=== PATIENT | female | born 1950 | race Caucasian/White ===

== ENCOUNTER 2019-04-27 14:41 | Outpatient (CLI) | payer OTHER, SELFPAY ==
[2019-04-27 15:14] LABS: Basophils Absolute Auto 0.1 K/mm3 (0.0-0.1); Basophils Percent Auto 0.9 % (0.2-1.2); Eosinophils Absolute Auto 0.2 K/mm3 (0-0.3); Eosinophils Percent Auto 3.3 % (0-4.4); Hemoglobin 13.1 g/dL (12.0-15.0); Immature Granulocyte Absolute 0.03 K/mm3 (0.00-0.031); Immature Granulocyte Percent A 0.5 % (0-0.5); Lymphocytes Absolute Auto 2.37 K/mm3 (0.9-3.2); Mean Corpuscular HGB Conc 32.8 g/dl (32-36); Mean Corpuscular Volume 94.6 fl (80-100); Monocytes Absolute Auto 0.5 K/mm3 (0.1-0.6); Monocytes Percent Auto 7.9 % (2.6-8.5); Neutrophils Absolute Auto 3.4 K/mm3 (1.3-6.7); Neutrophils Percent Auto 51.4 % (45.5-73.1); Platelet Count Result 235 k/mm3 (150-375); Red Blood Count 4.23 M/mm3 (4.2-5.4); Red Cell Distribution Width 12.9 % (11.5-14.5); White Blood Count 6.6 K/mm3 (4.5-10.0)
[2019-04-27 15:55] LABS: Alanine Aminotransferase 18 U/L (4-35); Albumin Level 4.2 g/dL (3.5-5.1); Alkaline Phosphatase 74 U/L (38-126); Aspartate Amino Transferase 31 U/L (14-36); Bilirubin,Total 0.2 mg/dL (0.2-1.3); Blood Urea Nitrogen 17 mg/dL (7-17); Calcium 9.1 mg/dL (8.4-10.2); Carbon Dioxide 26 mmol/L (22-30); Chloride 101 mmol/L (98-107); Estimated Glomerular Filt Rate > 60; Glucose 100 mg/dL (65-105); Lipase 99 U/L (23-300); Sodium 136 mmol/L (137-145)
== END 2019-04-27 14:42 | disposition home or self-care (01) ==
PROVIDERS: PCP Internal Medicine; Visit Provider Internal Medicine
DX: R10.9 Unspecified abdominal pain (principal)
CPT/HCPCS: 36415; 80053; 83690; 85025

== ENCOUNTER 2019-04-29 07:25 | Outpatient (CLI) | payer OTHER, SELFPAY ==
--- NOTE | ~2019-04-29 | US_ITS ---
US right upper quadrant DATE: 04/29/2019 07:59 INDICATION: Epigastric abdominal pain TECHNIQUE: Real-time imaging of liver, pancreas, gallbladder fossa COMPARISON: 03/18/2016 CT abdomen pelvis FINDINGS: The gallbladder is surgically absent. No hepatic or pancreatic space-occupying mass lesion is evident. Normal hepatic portal venous flow di rection. The common bile duct measures 7 mm, which is likely consistent with postcholecystectomy state. IMPRESSION: Status post cholecystectomy Reviewed, dictated and finalized at Location A. Reviewed, dictated and finalized at location A. ND OF THE COURT IMPRESSION: Status post cholecystectomy
--- NOTE | ~2019-04-29 | XR_ITS ---
XR UGI w barium swallow DATE: 04/29/2019 08:19 INDICATION: Epigastric abdominal pain TECHNIQUE: Rapid sequence spot radiographs and overhead radiographs and fluoroscopy during oral inges tion of barium. Air contrast upper gastrointestinal series DAP: 37.386 1.2 minutes fluoroscopy time 88 total images COMPARISON: None FINDINGS: Normal deglutition and esophageal peristalsis. No stricture, mucosal fold thickening, erosion, ulceration or intraluminal mass lesion of the esophag us, stomach or duodenum is detected. IMPRESSION: Negative examination Reviewed, dictated and finalized at Location [facility]. Reviewed, dictated and finalized at location A. PRODUCTION ASSOCIATE IMPRESSION: Negative examination
== END 2019-04-29 07:26 | disposition home or self-care (01) ==
PROVIDERS: PCP Internal Medicine; Visit Provider Internal Medicine
DX: R10.13 Epigastric pain (principal); Z90.49 Acquired absence of other specified parts of digestive tract
CPT/HCPCS: 74240; 76705

== ENCOUNTER 2019-11-09 09:32 | Outpatient (CLI) | payer OTHER, SELFPAY ==
[2019-11-09 10:08] LABS: Alanine Aminotransferase 18 U/L (4-35); Albumin Level 4.3 g/dL (3.5-5.1); Alkaline Phosphatase 78 U/L (38-126); Anion Gap 8 mmol/L (8-16); Aspartate Amino Transferase 24 U/L (14-36); Bilirubin,Total 0.4 mg/dL (0.2-1.3); Blood Urea Nitrogen 10 mg/dL (7-17); Calcium 9.1 mg/dL (8.4-10.2); Carbon Dioxide 26 mmol/L (22-30); Chloride 103 mmol/L (98-107); Cholesterol 237 mg/dL (0-200); Estimated Glomerular Filt Rate > 60; Glucose 99 mg/dL (65-105); HDL Direct 60 mg/dL; Potassium 4.4 mmol/L (3.4-5.0); Sodium 137 mmol/L (137-145); Triglycerides 166 mg/dL (<150)
[2019-11-09 10:23] LABS: LDL Cholesterol Direct 129 mg/dL
[2019-11-09 10:39] LABS: Thyroid Stimulating Hormone 0.666 uIU/mL (0.465-4.680)
[2019-11-09 11:18] LABS: Vitamin D 25 Hydroxy 58.4 ng/mL
== END 2019-11-09 09:33 | disposition home or self-care (01) ==
LOC: ANHLAB 09:33
PROVIDERS: PCP Internal Medicine; Visit Provider Nurse Practitioner
DX: E03.9 Hypothyroidism, unspecified (principal); E55.9 Vitamin D deficiency, unspecified
CPT/HCPCS: 36415; 80053; 80061; 82306; 84443

== ENCOUNTER 2019-12-10 07:35 | Outpatient (CLI) | payer OTHER, SELFPAY ==
[2019-12-10 08:30] LABS: Cholesterol 145 mg/dL (0-200); HDL Direct 61 mg/dL; Triglycerides 138 mg/dL (<150)
[2019-12-10 08:40] LABS: LDL Cholesterol Direct 56 mg/dL
== END 2019-12-10 07:36 | disposition home or self-care (01) ==
PROVIDERS: PCP Internal Medicine; Visit Provider Nurse Practitioner
DX: E78.5 Hyperlipidemia, unspecified (principal)
CPT/HCPCS: 36415; 80061

== ENCOUNTER → 2020-01-03 12:09 | Outpatient (CLI) | payer OTHER, SELFPAY ==
--- NOTE | ~2020-01-03 | MM_ITS ---
EXAMINATION: MM screening avril BI w ilsa HISTORY: Screening TECHNIQUE: Craniocaudal and mediolateral oblique 3-D tomosynthesis images were obtained and synthetic 2-D images were generated. CAD analysis was submitted and interpreted. COMPARISON: Comparison to multiple prior studies sequentially, with oldest reviewed study dated 08/16. BREAST PARENCHYMAL COMPOSITION: There are scattered areas of fibroglandular density. FINDINGS: Right breast asymmetries and calcifications bilaterally are unchanged. There is no evidence of suspicious mass, calcification, or architectural distortion to suggest malignancy in either breas t. There has been no suspicious interval change. IMPRESSION: 1. No mammographic evidence of malignancy. 2. Recommend routine screening mammography in one year. BI-RADS Category 2: Benign finding(s). Reviewed, dictated and finalized at location A.
== END ==
PROVIDERS: PCP Internal Medicine; Visit Provider Nurse Practitioner
DX: Z12.31 Encounter for screening mammogram for malignant neoplasm of breast (principal)
CPT/HCPCS: 77063; 77067

== ENCOUNTER → 2020-02-14 11:27 | Outpatient (CLI) | payer OTHER, SELFPAY ==
--- NOTE | ~2020-02-14 | DEXA_ITS ---
Bone Density Report Name: Radha Montero Age: 69 Sex: Female Ethnicity: White Date of : 1950 Indication: postmenopausal; screening for osteoporosis; prior fracture; asthma or emphysema; hysterectomy; Referring Provider: Hannah Rowland Study: Bone densitometry was performed. Exam Date: February 14, 2020 Accession number: [id number] Bone Density: Region BMD T-score Z-score Classification AP Spine (L1-L4) 0.933 -1.0 1.1 Normal Femoral Neck (Left) 0.724 -1.1 0.7 Osteopenia Total Hip (Left) 0.865 -0.6 0.9 Normal Femoral Neck (Right) 0.696 -1.4 0.4 Osteopenia Total Hip (Right) 0.842 -0.8 0.7 Normal Total Hip Mean 0.854 -0.7 0.8 Normal World Health Organization criteria for BMD impression classify patients as: Normal (T-score at or above -1.0), Osteopenia (T-score between -1.0 and -2.5), or Osteoporosis (T-score at or below -2.5). 10-year Fracture Risk(1): Major Osteoporotic Fracture 15% Hip Fracture 1.9% Reported Risk Factors: [place] (), Neck BMD=0.696, BMI=32.1, previous fracture (1) FRAX(R) Version 3.08. Fracture probability calculated for an untreated patient. Fracture probability may be lower if the patient has received treatment. Clinical Information Provided by Patient: Has had a low trauma fracture Has used the following medications: Calcium, MTV Has the following medical conditions: Asthma or Emphysema, Hysterectomy Patient maximum height was 67 Menopause Age: 49 No regular weight bearing exercise Does not regularly consume dairy products Drinks caffeinated beverages Onset of menses at age 12 Number of children 2 Impression: The patient has low bone mass, based on the Right Femoral Neck T-score. The patient has an estimated ten-year risk of hip fracture of 1.9% and an estimated ten-year risk of major fracture of 15%, based on the WHO FRAX algorithm. The patient has risk factors, including: previous fracture. Discussion: BONE DENSITY IS LOW AT ONE OR MORE SKELETAL SITES. This patient's lowest T-score is low at one or more skeletal sites. It meets the World Health Organization's (WHO) criteria for ?low bone mass? (T-score between -1.0 and -2.5). The patient's 10-year risk of fracture as calculated by FRAX is less than the threshold where pharmacological therapy is recommended by the National Osteoporosis Foundation (NOF). However, all treatment decisions require clinical judgment and consideration of individual patient factors, including patient preferences, comorbidities, previous drug use, risk factors not captured in the FRAX model (e.g., frailty, falls, vitamin D deficiency, increased bone turnover, interval significant decline in bone density) and possible under or overestimation of fracture risk by FRAX. The patient should follow a healthful lifestyle (good nutrition
== END ==
PROVIDERS: PCP Internal Medicine; Visit Provider Nurse Practitioner
DX: Z78.0 Asymptomatic menopausal state (principal); M81.0 Age-related osteoporosis without current pathological fracture; M85.851 Other specified disorders of bone density and structure, right thigh; M85.852 Other specified disorders of bone density and structure, left thigh
CPT/HCPCS: 77080

== ENCOUNTER 2020-05-02 07:40 | Outpatient (CLI) | payer OTHER, SELFPAY ==
[2020-05-02 08:20] LABS: Alanine Aminotransferase 21 U/L (4-35); Albumin Level 4.1 g/dL (3.5-5.1); Alkaline Phosphatase 74 U/L (38-126); Anion Gap 3 mmol/L (8-16); Aspartate Amino Transferase 26 U/L (14-36); Bilirubin,Total 0.4 mg/dL (0.2-1.3); Blood Urea Nitrogen 17 mg/dL (7-17); Calcium 9.4 mg/dL (8.4-10.2); Carbon Dioxide 34 mmol/L (22-30); Chloride 101 mmol/L (98-107); Cholesterol 261 mg/dL (0-200); Estimated Glomerular Filt Rate > 60; Glucose 101 mg/dL (65-105); HDL Direct 65 mg/dL; Sodium 138 mmol/L (137-145); Triglycerides 136 mg/dL (<150)
[2020-05-02 08:31] LABS: LDL Cholesterol Direct 137 mg/dL
[2020-05-02 09:02] LABS: Vitamin D 25 Hydroxy 70.5 ng/mL
== END 2020-05-02 07:41 | disposition home or self-care (01) ==
PROVIDERS: PCP Internal Medicine; Visit Provider Nurse Practitioner
DX: E78.5 Hyperlipidemia, unspecified (principal); E55.9 Vitamin D deficiency, unspecified; E03.9 Hypothyroidism, unspecified
CPT/HCPCS: 36415; 80053; 80061; 82306; 84443

== ENCOUNTER → 2020-08-17 10:20 | Outpatient (CLI) | payer OTHER, SELFPAY ==
--- NOTE | ~2020-08-17 | XR_ITS ---
XR femur LT min 2V DATE: 08/17/2020 11:15 INDICATION: Left leg pain TECHNIQUE: AP and lateral views COMPARISON: 08/17/2020 left hip FINDINGS: There is diffuse osteopenia. There is periarticular spurring of the patella consistent with osteoarthritis. There is patellar enth esopathy at the quadriceps and patellar tendon insertion sites. No fracture, dislocation, periosteal reaction or bone destruction of the left femur. IMPRESSION: Osteopenia Patellofemoral osteoarthritis Reviewed, dictated and finalized at location B.
--- NOTE | ~2020-08-17 | XR_ITS ---
XR tibia fibula LT 2V DATE: 08/17/2020 11:15 INDICATION: Left leg pain TECHNIQUE: AP and lateral views COMPARISON: None FINDINGS: Diffuse osteopenia. No recent fracture or dislocation. No periosteal reaction or bone destruction. Posterior calcaneal enthesopathy. IMPRESSION: Osteopenia Reviewed, dictated and finalized at location B. IMPRESSION: Osteopenia
--- NOTE | ~2020-08-17 | XR_ITS ---
XR hip LT min 2V DATE: 08/17/2020 11:15 INDICATION: Left hip pain TECHNIQUE: AP and lateral views of left hip COMPARISON: None FINDINGS: Osteopenia. The pubic symphysis and left sacroiliac joint are intact. Left hip joint space appears well preserved . No fracture, dislocation, avascular necrosis or bone destruction of the left hip. IMPRESSION: Osteopenia Reviewed, dictated and finalized at location B. IMPRESSION: Osteopenia
== END ==
PROVIDERS: PCP Internal Medicine; Visit Provider Internal Medicine
DX: M85.852 Other specified disorders of bone density and structure, left thigh (principal); M17.12 Unilateral primary osteoarthritis, left knee
CPT/HCPCS: 73502; 73552; 73590

== ENCOUNTER 2020-11-07 09:34 | Outpatient (CLI) | payer OTHER, SELFPAY ==
[2020-11-07 10:12] LABS: Alanine Aminotransferase 23 U/L (4-35); Albumin Level 4.2 g/dL (3.5-5.1); Alkaline Phosphatase 71 U/L (38-126); Anion Gap 6 mmol/L (8-16); Aspartate Amino Transferase 28 U/L (14-36); Bilirubin,Total 0.4 mg/dL (0.2-1.3); Blood Urea Nitrogen 12 mg/dL (7-17); Calcium 9.1 mg/dL (8.4-10.2); Carbon Dioxide 29 mmol/L (22-30); Chloride 100 mmol/L (98-107); Cholesterol 163 mg/dL (0-200); Estimated Glomerular Filt Rate > 60; Glucose 103 mg/dL (65-110); HDL Direct 61 mg/dL; Potassium 4.3 mmol/L (3.4-5.0); Sodium 135 mmol/L (137-145); Triglycerides 118 mg/dL (<150)
[2020-11-07 10:23] LABS: LDL Cholesterol Direct 68 mg/dL
[2020-11-07 11:14] LABS: Vitamin D 25 Hydroxy 69.7 ng/mL
== END 2020-11-07 09:35 | disposition home or self-care (01) ==
LOC: ANHLAB 09:39
PROVIDERS: PCP Internal Medicine; Visit Provider Internal Medicine
DX: E78.5 Hyperlipidemia, unspecified (principal); Z79.899 Other long term (current) drug therapy; E03.9 Hypothyroidism, unspecified; E55.9 Vitamin D deficiency, unspecified
CPT/HCPCS: 36415; 80053; 80061; 82306; 84443

== ENCOUNTER 2020-12-25 07:56 | Outpatient (CLI) | payer OTHER, SELFPAY ==
--- NOTE | 2021-01-04 12:43 | P.SLEEP_ITS ---
Sleep Study - Home Unattended Date of Study: 12/25/20 Ordering Provider: Kenny Forman DO Interpreting Provider: Roya Ochoa DO Home Sleep Study Type: Apnea Link Air Height: 1.68 m Weight: 92.533 kg Body Mass Index: 32.9 Neck Circumference (inches): 15 [place]: 4 PMFSH Past Medical History Medical History (Updated 01/04/21 @ 13:51 by Roya Ochoa DO) Anxiety Cholecystectomy planned Hyperlipidemia DARY (obstructive sleep apnea) Palpitations Screening for breast cancer Screening for breast cancer Surgical History Surgical History H/O: hysterectomy History of appendectomy Family History Family History Mother Family history of malignant neoplasm Patient's mother is Sibling Family history of chronic obstructive pulmonary disease Patient's brother is Father Family history of Alzheimer's disease Patient's father is Other Family history of lung disease Social History Social History Social History: Social smoker in the past Years smoked: 1 Smoking status: Never smoker Tobacco type: cigarettes Second hand tobacco smoke exposure: Yes Alcohol intake: current Alcohol use details: Once in a while Substance use: never Substance use type: does not use Medications Home Medications Medication Instructions Recorded Confirmed Type cetirizine 10 mg tablet 10 mg PO DAILY PRN tablet 05/03/19 12/22/20 History albuterol sulfate 90 mcg/actuation 1 inhalation INHALATION Q4H #8.5 gm 06/11/19 12/22/20 Rx aerosol inhaler calcium carbonate 500 mg calcium 500 mg PO DAILY #90 tablet 02/14/20 12/22/20 Rx (1,250 mg) tablet alprazolam 0.25 mg tablet 0.25 mg PO DAILY PRN #30 tablet 02/15/20 12/22/20 Rx fluticasone propionate 50 2 spray INTRANASAL DAILY #15.8 ml 02/15/20 12/22/20 Rx mcg/actuation nasal spray,suspension nabumetone 500 mg tablet 500 mg PO BID #60 tablet 08/08/20 12/22/20 Rx levothyroxine 75 mcg tablet 75 mcg PO DAILY #90 tablet 08/11/20 12/22/20 Rx omega-3 acid ethyl esters 1 gram See Rx Instructions .ROUTE 09/18/20 12/22/20 Rx capsule .COMPLEX #30 cap atorvastatin 10 mg tablet 10 mg PO DAILY #90 tablet 10/12/20 12/22/20 Rx Assessment and Plan Data The data obtained during this sleep study is adequate for interpretation.
--- NOTE | 2021-01-04 13:37 | WPDHOMESLEEP ---
Sleep Study - Home Unattended Date of Study: 12/25/20 <Roya Ochoa DO - Last Filed: 01/04/21 13:52> Ordering Provider: Kenny Forman DO <Roya Ochoa DO - Last Filed: 01/04/21 13:52> Interpreting Provider: Roya Ochoa DO <Roya Ochoa DO - Last Filed: 01/04/21 13:52> Home Sleep Study Type: Apnea Link Air <Roya Ochoa DO - Last Filed: 01/04/21 13:52> Height: 1.68 m <Roya Ochoa DO - Last Filed: 01/04/21 13:52> Weight: 92.533 kg <Roya Ochoa DO - Last Filed: 01/04/21 13:52> Body Mass Index: 32.9 <Roya Ochoa DO - Last Filed: 01/04/21 13:52> Neck Circumference (inches): 15 <Roya Ochoa DO - Last Filed: 01/04/21 13:52> [place]: 4 <Roya Ochoa DO - Last Filed: 01/04/21 13:52> Reason for Sleep Study The patient has a history of obstructive sleep apnea. She states that her machine and she took a sleep test 3-4 years ago and she did not qualify for CPAP. <Roya Ochoa DO - Last Filed: 01/04/21 13:52> Sleep History The patient is a 70-year-old female with history of sleep apnea that had a home sleep test ordered by her primary care physician because she needs a new machine. The patient states that about 10 years ago in another state, she had a CPAP machine in used in tele . When she moved here to [facility] she wanted to get another machine but her sleep study did not meet criteria for PAP therapy. The patient frequently awakens from sleep short of breath and often awakens at night with heartburn belching or cough. She does snore constantly and it is often loud enough that others complain. She frequently has trouble sleeping when she has a cold and will frequently wake up gasping for air throughout the night. She has had breathing problems at night observed by others. She has noticed heart palpitations throughout the night. She has never will not sleep during the day or while driving. She denies loss of muscle tone when extremely emotional. She often has trouble at work due to sleepiness. She denies sleep paralysis, cataplexy and hypnagogic/hypnopompic hallucinations. She rarely has nightmares. She denies feeling sad or depressed. She often has anxiety about things. She denies kicking throughout the night. She denies crawling and aching feelings in her legs but she does experience leg pain throughout the night. She will rarely grind her teeth during sleep but denies waking up with jaw pain. She constantly is bothered by pain throughout the day and is awakened by pain throughout the night. She will wake up stiff in the morning. She states that she goes to bed at 10:00 p.m. and wakes up at 8:00 a.m.. She usually gets 6-8 hours of sleep. It takes her about 3 hours to fall asleep and she wakes up about 5 times throughout the night. She can fall back asleep within 10 minutes. She will awaken throughout the night to use the restroom. The patient is currently retired. She does not drink any caffeinated beverages within 2 hours of falling asleep. She denies physical exercise prior to bedtime. She will read before falling asleep but does not watch television. She does not take any naps during the afternoon or the evening. She currently lives with her . The patient is a former smoker. She will drink 1 cup of a caffeinated beverage per day. She denies alcohol and recreational drug use. <Roya Ochoa DO - Last Filed: 01/04/21 13:52> [facility] Past Medical History Medical History: Medical History (Updated 01/04/21 @ 13:51 by Roya Ochoa DO) Anxiety Cholecystectomy planned Hyperlipidemia DARY (obstructive sleep apnea) Palpitations Screening for breast cancer Screening for breast cancer <Roya Ochoa DO - Last Filed: 01/04/21 13:52> Surgical History Surgical History: Surgical History (Reviewed 01/04/21 @ 13:47 by Shanthi
[2021-01-04 13:52] VITALS: BMI 32.9
== END 2020-12-26 10:43 | disposition home or self-care (01) ==
LOC: ANHCSM 07:57
PROVIDERS: PCP Internal Medicine; Visit Provider Internal Medicine
DX: G47.33 Obstructive sleep apnea (adult) (pediatric) (principal)
CPT/HCPCS: 95806

== ENCOUNTER → 2021-01-30 09:00 | Outpatient (CLI) | payer OTHER, SELFPAY ==
[2021-01-30 18:29] LABS: SARS-CoV-2 RNA PCR Negative
== END ==
PROVIDERS: PCP Internal Medicine; Visit Provider Nurse Practitioner
DX: R68.89 Other general symptoms and signs (principal); Z20.822 Contact with and (suspected) exposure to COVID-19
CPT/HCPCS: C9803; U0003; U0005

== ENCOUNTER → 2021-04-17 10:44 | Outpatient (CLI) | payer OTHER, SELFPAY ==
--- NOTE | ~2021-04-17 | MM_ITS ---
EXAMINATION: MM screening [facility] BI w ilsa HISTORY: Screening TECHNIQUE: Craniocaudal and mediolateral oblique 3-D tomosynthesis images were obtained and synthetic 2-D images were generated. CAD analysis was submitted and interpreted. COMPARISON: Comparison to multiple prior studies sequentially, with oldest reviewed study dated 08/28. BREAST PARENCHYMAL COMPOSITION: There are scattered areas of fibroglandular density. FINDINGS: Stable right breast masses. There is no evidence of suspicious mass, calcification, or arch itectural distortion to suggest malignancy in either breast. There has been no suspicious interval ch fabienne. IMPRESSION: 1. No mammographic evidence of malignancy. 2. Recommend routine screening mammography in one year. BI-RADS Category 2: Benign finding(s). Reviewed, dictated and finalized at location A. ING ASSISTANT
== END ==
PROVIDERS: Visit Provider Nurse Practitioner
DX: Z12.31 Encounter for screening mammogram for malignant neoplasm of breast (principal)
CPT/HCPCS: 77063; 77067

== ENCOUNTER 2021-09-26 00:27 | Day surgery (SDC) | payer OTHER, SELFPAY ==
[2021-09-06 14:04] VITALS: BMI 32.3
[2021-09-26 06:22] VITALS: BP 143/67; PULSE 70; RESP 20; TEMP 36.3; O2SAT 99; BMI 31.8
[2021-09-26] MEDS: LACTATED RINGERS 1,000 ML 150 ML IV CONT (06:31)
--- NOTE | 2021-09-26 07:27 | WPDANESEPPF ---
Anes - Initial Pre Proc Eval Procedure: Operation Date: 09/26/21 07:30 Proposed Procedures p Colonoscopy - Eddie Barry MD Date/Time: 09/26/21 07:27 Surgeon: Eddie Barry MD Pre Op Diagnosis: diverticulitis Patient Data Age: 71 Gender: F Height: 1.68 m Weight: 89.4 kg Last Vital Signs Temp 97.4 F L 09/26/21 06:22 Pulse 70 09/26/21 06:22 Resp 20 09/26/21 06:22 BP 143/67 H 09/26/21 06:22 Pulse Ox 99 09/26/21 06:22 O2 Del Method Room Air 09/26/21 06:22 Allergies Allergy/AdvReac Type Severity Reaction Status Date / Time No Known Allergies Allergy Verified 09/26/21 06:20 Home Medications Medication Instructions Recorded Confirmed Type albuterol sulfate 90 mcg/actuation 1 inhalation inhalation Q4H #8.5 06/11/19 09/06/21 Rx aerosol inhaler grams calcium carbonate 500 mg calcium 500 mg PO DAILY #90 tabs 02/14/20 09/06/21 Rx (1,250 mg) tablet (Calcium 500) alprazolam 0.25 mg tablet (Xanax) 0.25 mg PO DAILY PRN anxiety #30 02/15/20 09/06/21 Rx tabs dextroamphetamine-amphetamine 10 2.5 mg PO DAILY PRN ADHD 02/05/21 09/06/21 History mg tablet (Adderall) atorvastatin 10 mg tablet See Rx Instructions .Route 04/04/21 09/06/21 Rx .COMPLEX #90 tabs fexofenadine 180 mg tablet 180 mg PO DAILY 07/05/21 09/06/21 History levothyroxine 75 mcg tablet 75 mcg PO DAILY #90 tabs 09/05/21 09/06/21 Rx omega-3 acid ethyl esters 1 gram See Rx Instructions .Route 09/05/21 09/06/21 Rx capsule .COMPLEX #30 caps ashwagandha root extract 1 tablet PO DAILY 09/06/21 09/06/21 History fluticasone propionate 50 See Rx Instructions .Route 09/06/21 09/06/21 History mcg/actuation nasal .COMPLEX PRN Congestion spray,suspension melatonin 3 mg tablet 3 mg PO HS PRN Insomnia 09/06/21 09/06/21 History nabumetone 500 mg tablet 500 mg PO BID #60 tabs 09/24/21 09/26/21 Rx Patient hx anesthesia problems: none Family hx anesthesia problems: none Results Review: All pre-operative results and documents have been reviewed as part of the pre-operative evaluation. [facility] Past Medical History Medical History Anxiety Cholecystectomy planned Hyperlipidemia DARY (obstructive sleep apnea) Palpitations Screening for breast cancer Screening for breast cancer Surgical History Surgical History H/O: hysterectomy History of appendectomy Family History Family History Mother Family history of malignant neoplasm Patient's mother is Sibling Family history of chronic obstructive pulmonary disease Patient's brother is Father Family history of Alzheimer's disease Patient's father is Other Family history of lung disease Social History Social History Social History: Social smoker in the past Years smoked: 3 Smoking status: Former smoker Tobacco type: cigarettes Second hand tobacco smoke exposure: Yes Alcohol intake: current Alcohol use details: 1 per month Substance use: never Substance use type: does not use Living arrangements: with family Spiritual care concerns: No Anes - Eval Final PreProcedure Day of Procedure 09/26/21 07:27 Patient weight: obese Heart: regular rate and rhythm Lungs: clear to auscultation Airway: Mallampati scale class II Neurological: alert and oriented Last oral intake: >/= 8 hours ASA classification: III Emergent: no Anesthetic plan: proceed Anesthesia type and monitoring: general GIVS and standard monitoring Results Review: All pre-operative results and documents have been reviewed as part of the pre-operative evaluation. Informed Consent: The patient's anesthetic plan and its attendant risks and benefits were discussed with the patient/family
--- NOTE | 2021-09-26 07:49 | PM.HPGS ---
History of Present Illness History of Present Illness Consent: Risks, benefits, and alternatives have been discussed and questions answered. Patient agrees to proceed with procedure. Chief complaint: diverticulitis Narrative: Radha Montero is a 71 year old female with previous episode of diverticulitis, last colonoscopy about 5 years ago Review of Systems Constitutional: Constitutional: Denies headache(s) and Denies weakness Eyes: Eyes: Denies blurry vision ENT: Reports Normal hearing present, Denies headache(s) and Denies neck pain Cardiovascular: Cardiovascular: Denies chest pain and Denies dyspnea Respiratory: Respiratory: Denies dyspnea Gastrointestinal: Gastrointestinal: Reports no additional gastrointestinal complaints Genitourinary: Genitourinary: Denies dysuria Musculoskeletal: Musculoskeletal: Denies neck pain Integumentary/Breasts: Skin/Breast: Denies dry skin Neurologic: Reports Normal hearing present, Denies headache(s) and Denies weakness Psychiatric: Psychiatric: Denies anxiety Endocrine: Endocrine: Denies change in body appearance Hematologic/Lymphatic: Hematologic/Lymphatic: Denies easy bleeding Allergic/Immunologic: Allergic/Immunologic: Denies urticaria PMFSH Past Medical History Medical History Anxiety Cholecystectomy planned Hyperlipidemia DARY (obstructive sleep apnea) Palpitations Screening for breast cancer Screening for breast cancer Surgical History Surgical History H/O: hysterectomy History of appendectomy Family History Family History Mother Family history of malignant neoplasm Patient's mother is Sibling Family history of chronic obstructive pulmonary disease Patient's brother is Father Family history of Alzheimer's disease Patient's father is Other Family history of lung disease Social History Social History Social History: Social smoker in the past Years smoked: 3 Smoking status: Former smoker Tobacco type: cigarettes Second hand tobacco smoke exposure: Yes Alcohol intake: current Alcohol use details: 1 per month Substance use: never Substance use type: does not use Living arrangements: with family Spiritual care concerns: No Meds Home Medications and Allergies Home Medications Medication Instructions Recorded Confirmed Type albuterol sulfate 90 mcg/actuation 1 inhalation inhalation Q4H #8.5 06/11/19 09/06/21 Rx aerosol inhaler grams calcium carbonate 500 mg calcium 500 mg PO DAILY #90 tabs 02/14/20 09/06/21 Rx (1,250 mg) tablet (Calcium 500) alprazolam 0.25 mg tablet (Xanax) 0.25 mg PO DAILY PRN anxiety #30 02/15/20 09/06/21 Rx tabs dextroamphetamine-amphetamine 10 2.5 mg PO DAILY PRN ADHD 02/05/21 09/06/21 History mg tablet (Adderall) atorvastatin 10 mg tablet See Rx Instructions .Route 04/04/21 09/06/21 Rx .COMPLEX #90 tabs fexofenadine 180 mg tablet 180 mg PO DAILY 07/05/21 09/06/21 History levothyroxine 75 mcg tablet 75 mcg PO DAILY #90 tabs 09/05/21 09/06/21 Rx omega-3 acid ethyl esters 1 gram See Rx Instructions .Route 09/05/21 09/06/21 Rx capsule .COMPLEX #30 caps ashshareedha root extract 1 tablet PO DAILY 09/06/21 09/06/21 History fluticasone propionate 50 See Rx Instructions .Route 09/06/21 09/06/21 History mcg/actuation nasal .COMPLEX PRN Congestion spray,suspension melatonin 3 mg tablet 3 mg PO HS PRN Insomnia 09/06/21 09/06/21 History nabumetone 500 mg tablet 500 mg PO BID #60 tabs 09/24/21 09/26/21 Rx Allergies Allergy/AdvReac Type Severity Reaction Status Date / Time No Known Allergies Allergy Verified 09/26/21 06:20 Vital Signs Vital Signs - 24 hr 09/26/21 06:22 Temperature 97.4 F L Pulse Rate 70
[2021-09-26 08:11] VITALS: BP 126/50; PULSE 47; RESP 23; O2SAT 98
[2021-09-26 08:21] VITALS: BP 134/56; PULSE 50; RESP 22; O2SAT 98
[2021-09-26 08:31] VITALS: BP 141/57; PULSE 55; RESP 20; O2SAT 99
== END 2021-09-26 08:35 | disposition home or self-care (01) ==
PROVIDERS: PCP Internal Medicine; Visit Provider Internal Medicine Gastroenterology
PROC: 0DJD8ZZ Inspection of Lower Intestinal Tract, Via Natural or Artificial Opening Endoscopic (ICD-10-PCS; CPT 45378; principal; 2021-09-26 07:30)
DX: Z09 Encounter for follow-up examination after completed treatment for conditions other than malignant neoplasm (principal); D12.0 Benign neoplasm of cecum; K57.30 Diverticulosis of large intestine without perforation or abscess without bleeding; K62.89 Other specified diseases of anus and rectum; K64.8 Other hemorrhoids; K64.4 Residual hemorrhoidal skin tags; Z87.19 Personal history of other diseases of the digestive system; E78.5 Hyperlipidemia, unspecified; G47.33 Obstructive sleep apnea (adult) (pediatric); F41.9 Anxiety disorder, unspecified; Z87.891 Personal history of nicotine dependence; E66.9 Obesity, unspecified; Z68.31 Body mass index [BMI] 31.0-31.9, adult; Z79.51 Long term (current) use of inhaled steroids
CPT/HCPCS: 45385; 88305; J2001; J2704; J7120

== ENCOUNTER 2022-01-15 06:56 | Outpatient (CLI) | payer OTHER, SELFPAY ==
[2022-01-15 07:20] LABS: Alanine Aminotransferase 27 U/L (6-35); Albumin Level 4.1 g/dL (3.5-5.1); Alkaline Phosphatase 90 U/L (38-126); Anion Gap 10 mmol/L (8-16); Aspartate Amino Transferase 31 U/L (14-36); Bilirubin,Total 0.5 mg/dL (0.2-1.3); Blood Urea Nitrogen 10 mg/dL (7-17); Calcium 9.1 mg/dL (8.4-10.2); Carbon Dioxide 29 mmol/L (22-30); Chloride 103 mmol/L (98-107); Cholesterol 165 mg/dL (0-200); Estimated Glomerular Filt Rate > 60; Glucose 101 mg/dL (65-110); HDL Direct 63 mg/dL; Sodium 142 mmol/L (137-145); Triglycerides 91 mg/dL (<150)
[2022-01-15 07:31] LABS: LDL Cholesterol Direct 65 mg/dL
[2022-01-15 07:48] LABS: Vitamin D 25 Hydroxy 52.5 ng/mL
== END 2022-01-15 06:57 | disposition home or self-care (01) ==
LOC: ANHLAB 06:57
PROVIDERS: PCP Internal Medicine; Visit Provider Internal Medicine
DX: E78.5 Hyperlipidemia, unspecified (principal); Z79.899 Other long term (current) drug therapy; E03.9 Hypothyroidism, unspecified; E55.9 Vitamin D deficiency, unspecified
CPT/HCPCS: 36415; 80053; 80061; 82306; 84443

== ENCOUNTER 2022-02-07 14:16 | Outpatient (CLI) | payer OTHER, SELFPAY | END 2022-02-07 14:17 | disposition home or self-care (01) | LOC: ANHAUDIO 14:17 | PROVIDERS: PCP Internal Medicine; Visit Provider Nurse Practitioner | DX: H90.3 Sensorineural hearing loss, bilateral (principal) | CPT/HCPCS: 92557; 92567 ==

== ENCOUNTER 2022-05-03 14:23 | Outpatient (CLI) | payer OTHER, SELFPAY ==
[2022-05-03 15:03] LABS: Basophils Absolute Auto 0.1 K/mm3 (0.0-0.1); Basophils Percent Auto 0.9 % (0.2-1.2); Eosinophils Absolute Auto 0.4 K/mm3 (0-0.3); Eosinophils Percent Auto 7.8 % (0-4.4); Hematocrit 43.2 % (37.0-47.0); Hemoglobin 14.2 g/dL (12.0-15.0); Immature Granulocyte Absolute 0.01 K/mm3 (0.00-0.031); Immature Granulocyte Percent A 0.2 % (0-0.5); Lymphocytes Absolute Auto 2.29 K/mm3 (0.9-3.2); Lymphocytes Percent Auto 40.8 % (18.3-44.2); Mean Corpuscular HGB Conc 32.9 g/dl (32-36); Mean Corpuscular Volume 97.3 fl (80-100); Mean Platelet Volume 9.3 fl (7.4-10.4); Monocytes Absolute Auto 0.5 K/mm3 (0.1-0.6); Monocytes Percent Auto 9.1 % (2.6-8.5); Neutrophils Absolute Auto 2.3 K/mm3 (1.3-6.7); Neutrophils Percent Auto 41.2 % (45.5-73.1); Platelet Count Result 201 k/mm3 (150-375); Red Blood Count 4.44 M/mm3 (4.2-5.4); Red Cell Distribution Width 12.6 % (11.5-14.5); White Blood Count 5.6 K/mm3 (4.5-10.0)
[2022-05-03 15:25] LABS: Alanine Aminotransferase 34 U/L (6-35); Albumin Level 4.5 g/dL (3.5-5.1); Alkaline Phosphatase 113 U/L (38-126); Anion Gap 5 mmol/L (8-16); Aspartate Amino Transferase 37 U/L (14-36); Bilirubin,Total 0.4 mg/dL (0.2-1.3); Blood Urea Nitrogen 12 mg/dL (7-17); Calcium 9.2 mg/dL (8.4-10.2); Carbon Dioxide 31 mmol/L (22-30); Chloride 95 mmol/L (98-107); Estimated Glomerular Filt Rate > 60; Glucose 94 mg/dL (65-110); Potassium 3.9 mmol/L (3.4-5.0); Sodium 131 mmol/L (137-145)
== END 2022-05-03 14:24 | disposition home or self-care (01) ==
PROVIDERS: PCP Internal Medicine; Visit Provider Nurse Practitioner Family
DX: R10.9 Unspecified abdominal pain (principal)
CPT/HCPCS: 36415; 80053; 85025; 87086; 87088

== ENCOUNTER 2022-05-07 10:19 | Outpatient (CLI) | payer OTHER, SELFPAY ==
--- NOTE | 2022-05-09 11:37 | WPDHOLTEREM ---
Holter/Event Monitor Holter/Event Monitor Date of procedure: 05/07/22 Holter/Event Procedure: 24 Hr Holter Monitor Indications: Palpitations Conclusion: 1. 24 hour holter monitor on 05/07/22. 2. Underlying rhythm is sinus rhythm. HR range 42-106 bpm; average HR 57 bpm. 3. There are 142 premature supraventricular complexes and 1 supraventricular couplet and 1 supraventricular triplet, 3 supraventricular trigeminy. No supraventricular tachycardia. 4. There are 28 premature ventricular complexes. No ventricular tachycardia. 5. No sinoatrial or atrioventricular blocks. No significant pauses greater than 2 seconds. 6. Patient reports symptoms of palpitations which demonstrate sinus rhythm, HR range 60-83 bpm.
== END 2022-05-07 10:20 | disposition home or self-care (01) ==
LOC: ANHCARD 10:21
PROVIDERS: PCP Internal Medicine; Visit Provider Internal Medicine
DX: R00.2 Palpitations (principal)
CPT/HCPCS: 93225; 93226

== ENCOUNTER 2022-07-31 08:06 | Outpatient (CLI) | payer OTHER, SELFPAY ==
[2022-07-31 09:08] LABS: Anion Gap 4 mmol/L (8-16); Blood Urea Nitrogen 13 mg/dL (7-17); Carbon Dioxide 34 mmol/L (22-30); Chloride 102 mmol/L (98-107); Potassium 4.2 mmol/L (3.4-5.0); Sodium 140 mmol/L (137-145)
[2022-07-31 09:09] LABS: Alanine Aminotransferase 28 U/L (6-35); Albumin Level 4.1 g/dL (3.5-5.1); Alkaline Phosphatase 105 U/L (38-126); Aspartate Amino Transferase 30 U/L (14-36); Bilirubin,Total 0.4 mg/dL (0.2-1.3); Calcium 9.2 mg/dL (8.4-10.2); Cholesterol 144 mg/dL (0-200); Estimated Glomerular Filt Rate > 60; Glucose 103 mg/dL (65-110); HDL Direct 56 mg/dL; Triglycerides 118 mg/dL (<150)
[2022-07-31 09:19] LABS: Anion Gap 5 mmol/L (8-16); Blood Urea Nitrogen 13 mg/dL (7-17); Calcium 9.3 mg/dL (8.4-10.2); Carbon Dioxide 34 mmol/L (22-30); Chloride 101 mmol/L (98-107); Estimated Glomerular Filt Rate > 60; Glucose 105 mg/dL (65-110); LDL Cholesterol Direct 56 mg/dL; Potassium 4.3 mmol/L (3.4-5.0); Sodium 140 mmol/L (137-145)
== END 2022-07-31 08:07 | disposition home or self-care (01) ==
LOC: ANHLAB 08:08
PROVIDERS: PCP Family Medicine; Referring Provider Nurse Practitioner Family; Visit Provider Nurse Practitioner
DX: E87.1 Hypo-osmolality and hyponatremia (principal); E78.5 Hyperlipidemia, unspecified
CPT/HCPCS: 36415; 80048; 80053; 80061

== ENCOUNTER 2022-08-15 09:13 | Outpatient (CLI) | payer OTHER, SELFPAY ==
--- NOTE | 2022-08-20 07:37 | WPDHOLTEREM ---
Holter/Event Monitor Holter/Event Monitor Date of procedure: 08/15/22 Holter/Event Procedure: 48 Hr Holter Monitor Indications: Palpitations Conclusion: 1. 48 hour holter monitor on 08/15/22. 2. Underlying rhythm is sinus rhythm. HR range 38-121 bpm; average HR 58 bpm. HR at 38 bpm was at 04:11. 3. There are 89 premature supraventricular complexes, and 2 supraventricular triplets. No supraventricular tachycardia. 4. There are 211 premature ventricular complexes, 1 ventricular couplet and 3 ventricular bigeminy. No ventricular tachycardia. 5. No sinoatrial or atrioventricular blocks. No significant pauses greater than 2 seconds. 6. Patient reports symptoms of racing heart and palpitations which demonstrate sinus rhythm, HR range 40-48 bpm.
== END 2022-08-15 09:14 | disposition home or self-care (01) ==
LOC: ANHCARD 09:14
PROVIDERS: PCP Family Medicine; Visit Provider Family Medicine
DX: R00.2 Palpitations (principal)
CPT/HCPCS: 93225; 93226

== ENCOUNTER → 2022-09-11 06:52 | Outpatient (CLI) | payer OTHER, SELFPAY ==
--- NOTE | ~2022-09-11 | MM_ITS ---
EXAMINATION: MM screening avril BI w ilsa HISTORY: Screening mammogram TECHNIQUE: Craniocaudal and mediolateral oblique 3-D tomosynthesis images were obtained and synthetic 2-D images were generated. CAD analysis was submitted and interpreted. COMPARISON: 04/17/2021, 01/03/2020, 11/16/2018 bilateral screening mammogram examinations BREAST PARENCHYMAL COMPOSITION: There are scattered areas of fibroglandular density. FINDINGS: There are scattered benign calcifications. There is no evidence of suspicious mass, calcifi cation, or architectural distortion to suggest malignancy in either breast. There has been no suspici ous interval change. IMPRESSION: 1. No mammographic evidence of malignancy. 2. Recommend routine screening mammography in one year. BI-RADS Category 2: Benign finding(s). Reviewed, dictated and finalized at location A.
== END ==
PROVIDERS: PCP Internal Medicine; Visit Provider Internal Medicine
DX: Z12.31 Encounter for screening mammogram for malignant neoplasm of breast (principal)
CPT/HCPCS: 77063; 77067

== ENCOUNTER 2023-02-19 07:08 | Outpatient (CLI) | payer OTHER, SELFPAY ==
[2023-02-19 07:51] LABS: Basophils Percent Auto 0.8 % (0.2-1.2); Eosinophils Absolute Auto 0.3 K/mm3 (0-0.3); Eosinophils Percent Auto 5.3 % (0-4.4); Hematocrit 45.2 % (37.0-47.0); Hemoglobin 14.7 g/dL (12.0-15.0); Immature Granulocyte Absolute 0.01 K/mm3 (0.00-0.031); Immature Granulocyte Percent A 0.2 % (0-0.5); Lymphocytes Absolute Auto 1.74 K/mm3 (0.9-3.2); Lymphocytes Percent Auto 36.9 % (18.3-44.2); Mean Corpuscular HGB Conc 32.5 g/dl (32-36); Mean Corpuscular Volume 98.5 fl (80-100); Mean Platelet Volume 9.5 fl (7.4-10.4); Monocytes Absolute Auto 0.5 K/mm3 (0.1-0.6); Monocytes Percent Auto 10.2 % (2.6-8.5); Neutrophils Absolute Auto 2.2 K/mm3 (1.3-6.7); Neutrophils Percent Auto 46.6 % (45.5-73.1); Platelet Count Result 216 k/mm3 (150-375); Red Blood Count 4.59 M/mm3 (4.2-5.4); White Blood Count 4.7 K/mm3 (4.5-10.0)
[2023-02-19 08:02] LABS: Alanine Aminotransferase 36 U/L (6-35); Albumin Level 4.6 g/dL (3.5-5.1); Alkaline Phosphatase 79 U/L (38-126); Anion Gap 6 mmol/L (8-16); Aspartate Amino Transferase 34 U/L (14-36); Bilirubin,Total 0.5 mg/dL (0.2-1.3); Blood Urea Nitrogen 22 mg/dL (7-17); Carbon Dioxide 32 mmol/L (22-30); Chloride 101 mmol/L (98-107); Estimated Glomerular Filt Rate > 60; Glucose 103 mg/dL (65-110); Potassium 4.1 mmol/L (3.4-5.0); Sodium 139 mmol/L (137-145)
[2023-02-23 11:52] LABS: Testosterone Total 28 ng/dL (2-45)
[2023-02-23 15:40] LABS: FSH 60.2 mIU/mL (***); LH 21.6 mIU/mL (***); Progesterone 0.2 ng/mL (***)
[2023-02-24 23:19] LABS: Estradiol, Ultrasensitive 14 pg/mL
== END 2023-02-19 07:09 | disposition home or self-care (01) ==
LOC: ANHLAB 07:10
PROVIDERS: PCP Family Medicine; Visit Provider Family Medicine
DX: E03.9 Hypothyroidism, unspecified (principal); G47.33 Obstructive sleep apnea (adult) (pediatric); R53.82 Chronic fatigue, unspecified; E78.5 Hyperlipidemia, unspecified; R00.2 Palpitations; F98.8 Other specified behavioral and emotional disorders with onset usually occurring in childhood and adolescence
CPT/HCPCS: 36415; 80053; 82670; 83001; 83002; 84144; 84403; 84443; 85025

== ENCOUNTER 2023-03-14 10:52 | Emergency (ER) | payer OTHER, SELFPAY ==
[2023-03-14 11:18] VITALS: BP 131/95; PULSE 68; RESP 16; TEMP 36.7; O2SAT 100
--- NOTE | 2023-03-14 11:39 | ED.URI ---
HPI - URI/Sore Throat General Chief Complaint: Upper Respiratory Infection Stated Complaint: Covid symptoms Time Seen by Provider: 03/14/23 11:30 Source: patient, RN notes reviewed and old records reviewed Mode of arrival: ambulatory Limitations: no limitations History of Present Illness HPI Narrative: 72 year old female who presents to [facility] care with complaints of 2 day history of body aches, frontal headache,sinus congestion and drainage, cough with no fevers. Reports that she had Home COVID test yesterday that was negative. Patient reports that family members are COVID positive. Patient reports that she has history of asthma, denies any acute dyspnea no tachypnea noted [id number] on room air. MD elicited complaint: cough, rhinorrhea, nasal congestion and other (headache and body aches) Pertinent past history: asthma Onset (ago): day(s) (2) Severity: mild Description of mucous: clear Able to tolerate fluids by mouth: Yes Treatments prior to arrival: acetaminophen and ibuprofen Related Data Home Medications Medication Instructions Recorded Confirmed famotidine 40 mg tablet See Rx Instructions .Route 02/13/23 03/14/23 .COMPLEX PRN Acid Reflux nabumetone 500 mg tablet 500 mg PO BID PRN Pain, Mild 02/13/23 03/14/23 omega-3 acid ethyl esters 1 gram See Rx Instructions .Route .COMPLEX 02/13/23 03/14/23 capsule Allergies Allergy/AdvReac Type Severity Reaction Status Date / Time No Known Allergies Allergy Verified 02/13/23 10:02 Review of Systems Review of Systems: CONSTITUTIONAL: Reports malaise, chills, sweats, no acute fever. EYES: Denies visual changes, redness, or discharge. ENT: Reports rhinorrhea, congestion, sinus pain,no otalgia and no sore throat. CARDIOVASCULAR: Denies chest pain, palpitations, or edema. RESPIRATORY: Reports cough.? Denies dyspnea. GASTROINTESTINAL: Denies abdominal pain, nausea, vomiting, diarrhea SKIN: Denies rash or itching. MUSCULOSKELETAL:Reports myalgia. NEUROLOGIC: Reports headache. All systems reviewed & are unremarkable except as noted in HPI and below PMFSH Past Medical History Medical History ADD (attention deficit disorder) Anxiety Cholecystectomy planned Diverticulosis Hyperlipidemia Hypothyroidism DARY (obstructive sleep apnea) Osteoarthritis Palpitations Screening for breast cancer Screening for breast cancer Surgical History Surgical History H/O: hysterectomy History of appendectomy History of cholecystectomy Family History Family History Mother Family history of malignant neoplasm Patient's mother is Sibling Family history of chronic obstructive pulmonary disease Patient's brother is Father Family history of Alzheimer's disease Patient's father is Other Family history of lung disease Social History Social History Social History: Social smoker in the past Years smoked: 3 Smoking status: Former smoker Tobacco type: cigarettes Second hand tobacco smoke exposure: Yes Alcohol intake: never Substance use: never Substance use type: does not use Lack of Transportation: No Lack of Food: Never True Current Housing: I Have Housing Concerned About Future Housing: No Difficulty Paying Gas/Electric Bills: No Difficulty Paying for Meds: No Education: High School Diploma/GED Difficulty w/ Childcare or Family Care: No Living arrangements: with family Spiritual care concerns: No Comments At time of signature, agree with nursing past medical, surgical, social and family history. There is no relevant family history pertinent to the presenting complaint Exam Narrative: GENERAL: Well-appearing, well-nourished, and in no acute dist
== END 2023-03-14 11:50 | disposition home or self-care (01) ==
PROVIDERS: Emergency Provider Registered Nurse; PCP Family Medicine
DX: U07.1 COVID-19 (principal); J45.909 Unspecified asthma, uncomplicated; E78.5 Hyperlipidemia, unspecified; E03.9 Hypothyroidism, unspecified; M19.90 Unspecified osteoarthritis, unspecified site; F41.9 Anxiety disorder, unspecified
CPT/HCPCS: 87426; 87804; 99213; C9803; G0463

== ENCOUNTER 2023-03-26 10:09 | Outpatient (CLI) | payer OTHER, SELFPAY ==
[2023-03-26 10:34] LABS: Hematocrit 44.2 % (37.0-47.0); Hemoglobin 14.4 g/dL (12.0-15.0); Mean Corpuscular HGB Conc 32.6 g/dl (32-36); Mean Corpuscular Hemoglobin 31.4 pg (26-34); Mean Corpuscular Volume 96.5 fl (80-100); Mean Platelet Volume 8.6 fl (7.4-10.4); Platelet Count Result 266 k/mm3 (150-375); Red Blood Count 4.58 M/mm3 (4.2-5.4); Red Cell Distribution Width 12.8 % (11.5-14.5); White Blood Count 7.5 K/mm3 (4.5-10.0)
[2023-03-26 10:57] LABS: Alanine Aminotransferase 35 U/L (6-35); Albumin Level 4.3 g/dL (3.5-5.1); Alkaline Phosphatase 79 U/L (38-126); Anion Gap 9 mmol/L (8-16); Aspartate Amino Transferase 27 U/L (14-36); Bilirubin,Total 0.4 mg/dL (0.2-1.3); Blood Urea Nitrogen 15 mg/dL (7-17); Calcium 9.7 mg/dL (8.4-10.2); Carbon Dioxide 30 mmol/L (22-30); Chloride 99 mmol/L (98-107); Cholesterol 281 mg/dL (0-200); Estimated Glomerular Filt Rate > 60; Glucose 121 mg/dL (65-110); HDL Direct 60 mg/dL; Potassium 4.1 mmol/L (3.4-5.0); Sodium 138 mmol/L (137-145); Triglycerides 186 mg/dL (<150)
[2023-03-26 11:08] LABS: LDL Cholesterol Direct 136 mg/dL
[2023-03-26 11:18] LABS: Vitamin D 25 Hydroxy 58.7 ng/mL
[2023-03-26 11:27] LABS: Thyroid Stimulating Hormone 0.427 uIU/mL (0.465-4.680)
== END 2023-03-26 10:10 | disposition home or self-care (01) ==
PROVIDERS: PCP Family Medicine; Visit Provider Family Medicine
DX: E03.9 Hypothyroidism, unspecified (principal); E55.9 Vitamin D deficiency, unspecified; E78.5 Hyperlipidemia, unspecified
CPT/HCPCS: 36415; 80053; 80061; 82306; 84443; 85027

== ENCOUNTER 2023-06-12 12:36 | Outpatient (CLI) | payer OTHER, SELFPAY ==
[2023-06-12 13:47] LABS: Basophils Percent Auto 0.5 % (0.2-1.2); Eosinophils Absolute Auto 1.3 K/mm3 (0-0.3); Eosinophils Percent Auto 20.1 % (0-4.4); Hematocrit 44.3 % (37.0-47.0); Hemoglobin 14.6 g/dL (12.0-15.0); Immature Granulocyte Absolute 0.01 K/mm3 (0.00-0.031); Immature Granulocyte Percent A 0.2 % (0-0.5); Lymphocytes Absolute Auto 2.37 K/mm3 (0.9-3.2); Lymphocytes Percent Auto 36.1 % (18.3-44.2); Mean Corpuscular Hemoglobin 31.8 pg (26-34); Mean Corpuscular Volume 96.5 fl (80-100); Mean Platelet Volume 9.4 fl (7.4-10.4); Monocytes Absolute Auto 0.6 K/mm3 (0.1-0.6); Monocytes Percent Auto 9.3 % (2.6-8.5); Neutrophils Absolute Auto 2.2 K/mm3 (1.3-6.7); Neutrophils Percent Auto 33.8 % (45.5-73.1); Platelet Count Result 215 k/mm3 (150-375); Red Blood Count 4.59 M/mm3 (4.2-5.4); Red Cell Distribution Width 12.9 % (11.5-14.5); White Blood Count 6.6 K/mm3 (4.5-10.0)
[2023-06-12 13:54] LABS: Alanine Aminotransferase 20 U/L (6-35); Albumin Level 4.4 g/dL (3.5-5.1); Alkaline Phosphatase 82 U/L (38-126); Amylase 78 U/L (30-110); Anion Gap 6 mmol/L (8-16); Aspartate Amino Transferase 29 U/L (14-36); Bilirubin,Total 0.6 mg/dL (0.2-1.3); Blood Urea Nitrogen 14 mg/dL (7-17); Carbon Dioxide 31 mmol/L (22-30); Chloride 101 mmol/L (98-107); Estimated Glomerular Filt Rate > 60; Glucose 89 mg/dL (65-110); Lipase 64 U/L (23-300); Potassium 4.6 mmol/L (3.4-5.0); Sodium 138 mmol/L (137-145)
[2023-06-12 14:23] LABS: Atypical Lymphocytes Present; Platelet Estimate Adequate (Adequate); Schistocytes None Seen
[2023-06-12 17:34] LABS: Hemoglobin A1C 5.5 % (<5.7)
== END 2023-06-12 12:37 | disposition home or self-care (01) ==
PROVIDERS: PCP Family Medicine; Visit Provider Nurse Practitioner Family
DX: R10.13 Epigastric pain (principal); R19.7 Diarrhea, unspecified; R73.01 Impaired fasting glucose; Z79.899 Other long term (current) drug therapy
CPT/HCPCS: 36415; 80053; 82150; 83036; 83690; 85025

== ENCOUNTER 2023-09-06 07:07 | Outpatient (CLI) | payer OTHER, SELFPAY ==
[2023-09-06 07:35] LABS: Cholesterol 218 mg/dL (0-200); HDL Direct 62 mg/dL; Triglycerides 88 mg/dL (<150)
[2023-09-06 07:46] LABS: LDL Cholesterol Direct 109 mg/dL
== END 2023-09-06 07:08 | disposition home or self-care (01) ==
PROVIDERS: PCP Family Medicine; Visit Provider Family Medicine
DX: E03.9 Hypothyroidism, unspecified (principal)
CPT/HCPCS: 36415; 80061; 84443

== ENCOUNTER 2024-01-28 10:43 | Outpatient (CLI) | payer OTHER, SELFPAY ==
--- NOTE | ~2024-01-28 | XR_ITS ---
XR chest 2V Ordering provider: Brooklyn Segura APRN History: 73 years Female with . R05.9 - Cough, unspecified . Comparison: January 05, 2019 FINDINGS: MEDIASTINUM: The cardiac silhouette is not enlarged. Congestive tnoi. LUNGS: No effusions or pneumothorax. Opacification the right infrahilar area suggestive of early pneu monia. Follow-up advised. OTHER: No free air under the diaphragm. Degenerative changes of the spine. IMPRESSION: Opacification in the right infrahilar area suggestive of early pneumonia. Follow-up advised. Reviewed, dictated and finalized at location A. IMPRESSION: Opacification in the right infrahilar area suggestive of early pneumonia. Follo w-up advised.
[2024-01-28 11:34] LABS: Strep Group A RT-PCR NOT DETECTED (Negative)
[2024-01-28 11:46] LABS: Influenza A QL RT-PCR Negative (Negative); Influenza B QL RT-PCR Negative (Negative); RSV RNA, RT-PCR Negative (Negative); SARS-CoV-2 RNA PCR Negative (Negative)
== END 2024-01-28 10:44 | disposition home or self-care (01) ==
PROVIDERS: PCP Family Medicine; Visit Provider Nurse Practitioner Family
DX: U07.1 COVID-19 (principal); R05.9 Cough, unspecified; R06.02 Shortness of breath
CPT/HCPCS: 71046; 87637; 87651

== ENCOUNTER 2024-02-23 12:09 | Outpatient (CLI) | payer OTHER, SELFPAY ==
--- NOTE | ~2024-02-23 | DEXA_ITS ---
Bone Density Report Name: MIKHAIL ABREU Age: 73 Sex: Female Ethnicity: White Date of : 1950 Indication: postmenopausal; screening for osteoporosis; asthma or emphysema; Referring Provider: GUADALUPE RIZVI Study: Bone densitometry was performed. Exam Date: February 23, 2024 Accession number: [id number] Bone Density: Region BMD T-score Z-score Classification AP Spine(L1-L4) 0.963 -0.8 1.6 Normal Femoral Neck (Left) 0.720 -1.2 0.9 Osteopenia Total Hip (Left) 0.854 -0.7 1.0 Normal Femoral Neck (Right) 0.732 -1.1 1.0 Osteopenia Total Hip (Right) 0.824 -1.0 0.8 Normal Total Hip Mean 0.839 -0.9 0.9 Normal World Health Organization criteria for BMD impression classify patients as: Normal (T-score at or above -1.0), Osteopenia (T-score between -1.0 and -2.5), or Osteoporosis (T-score at or below -2.5). 10-year Fracture Risk(1): Major Osteoporotic Fracture 9.6% Hip Fracture 1.5% Reported Risk Factors: [place] (), Neck BMD=0.720, BMI=30.4 (1) FRAX(R) Version 3.08. Fracture probability calculated for an untreated patient. Fracture probability may be lower if the patient has received treatment. Previous Exams: Region Exam Age BMD T-score BMD Change BMD Change Date g/cm2 vs Baseline vs Previous AP Spine (L1-L4) 02/23/2024 73 0.963 -0.8 -0.013 (-1.4%) 0.008 (0.9%) 02/11/2018 67 0.955 -0.8 -0.022 (-2.2%) -0.022 (-2.2%) 08/16/2014 63 0.976 -0.6 Total Hip(Left) 02/23/2024 73 0.854 -0.7 -0.099 (-10.4% -0.007 (-0.8%) 02/11/2018 67 0.861 -0.7 -0.092 (-9.6%) -0.092 (-9.6%) 08/16/2014 63 0.953 0.1 Total Hip(Right) 02/23/2024 73 0.824 -1.0 -0.074 (-8.2%) -0.026 (-3.0%) 02/11/2018 67 0.850 -0.8 -0.048 (-5.4%) -0.048 (-5.4%) 08/16/2014 63 0.898 -0.4 *Denotes significance at 95% confidence level, LSC for AP Spine = 0.022 g/cm2, LSC for Total Hip = 0.027 g/cm2 Clinical Information Provided by Patient: Has used the following medications: Vitamin D, Calcium Has the following medical conditions: Asthma or Emphysema Patient maximum height was 66.0 Menopause Age: 49 No regular weight bearing exercise Drinks caffeinated beverages Onset of menses at age 12 Number of children 2 Impression: The patient has low bone mass, based on the Left Femoral Neck T-score. The patient has an estimated ten-year risk of hip fracture of 1.5% and an estimated ten-year risk of major fracture of 9.6%, based on the WHO FRAX algorithm. No significant bone loss was observed. Discussion: BONE DENSITY IS LOW AT ONE OR MORE SKELETAL SITES. This patient's lowest T-score is low at one or more skeletal sites. It meets the World Health Organization's (WHO) criteria for ?low bone mass? (T-score between -1.0 and -2.5). The patient's 10-year risk of fracture as calculated by FRAX is less than the threshold where pharmacological therapy is recommended by the National Osteoporosis Foundation (NOF). However, all treatment decisions require clinical judgment and consideration of individual patient factors, including patient preferences, comorbidities, previous drug use, risk factors not captured in the FRAX model (e.g., frailty, falls, vitamin D deficiency, increased bone turnover, interval significant decline in bone density) and possible under or overestimation of fracture risk by FRAX. The patient should follow a healthful lifestyle (good nutrition with adequate calcium and vitamin D, and appropriate weight-bearing exercise). Follow-Up: Consider repeating this study in 2 to 3 years to reassess this patient's status, or sooner if there is some new clinical indication. Reported by: MERON on 02/23/2024 12:41:00 PM. Reviewed, dictated and finalized at location AApril MAZA
== END 2024-02-23 12:10 | disposition home or self-care (01) ==
LOC: ANHIMG 12:10
PROVIDERS: PCP Family Medicine; Visit Provider Family Medicine
DX: M85.89 Other specified disorders of bone density and structure, multiple sites (principal); N95.9 Unspecified menopausal and perimenopausal disorder
CPT/HCPCS: 77080

== ENCOUNTER 2024-02-25 11:58 | Outpatient (CLI) | payer OTHER, SELFPAY ==
--- NOTE | ~2024-02-25 | MM_ITS ---
EXAMINATION: MM screening avril BI w ilsa HISTORY: Screening TECHNIQUE: Craniocaudal and mediolateral oblique 3-D tomosynthesis images were obtained and synthetic 2-D images were generated. CAD analysis was submitted and interpreted. COMPARISON: Comparison to multiple prior studies sequentially, with oldest reviewed study dated 05/2016. BREAST PARENCHYMAL COMPOSITION: Not dense: There are scattered areas of fibroglandular density. FINDINGS: Right breast asymmetries are stable. There is no evidence of suspicious mass, calcification , or architectural distortion to suggest malignancy in either breast. There has been no suspicious in terval change. IMPRESSION: 1. No mammographic evidence of malignancy. 2. Recommend routine screening mammography in one year. BI-RADS Category 2: Benign finding(s). Reviewed, dictated and finalized at location B. NG SUPERVISOR
== END 2024-02-25 11:59 | disposition home or self-care (01) ==
LOC: MICIMG 11:59
PROVIDERS: PCP Family Medicine; Visit Provider Family Medicine
DX: Z12.31 Encounter for screening mammogram for malignant neoplasm of breast (principal)
CPT/HCPCS: 77063; 77067

== ENCOUNTER 2024-03-06 06:50 | Outpatient (CLI) | payer OTHER, SELFPAY ==
[2024-03-06 07:12] LABS: Hemoglobin 14.8 g/dL (12.0-15.0); Mean Corpuscular HGB Conc 32.9 g/dl (32-36); Mean Corpuscular Hemoglobin 32.4 pg (26-34); Mean Corpuscular Volume 98.5 fl (80-100); Mean Platelet Volume 9.1 fl (7.4-10.4); Platelet Count Result 210 k/mm3 (150-375); Red Blood Count 4.57 M/mm3 (4.2-5.4); White Blood Count 4.7 K/mm3 (4.5-10.0)
[2024-03-06 07:28] LABS: Alanine Aminotransferase 36 U/L (6-35); Albumin Level 4.3 g/dL (3.5-5.1); Alkaline Phosphatase 79 U/L (38-126); Anion Gap 4 mmol/L (4-12); Aspartate Amino Transferase 34 U/L (14-36); Bilirubin,Total 0.6 mg/dL (0.2-1.3); Blood Urea Nitrogen 19 mg/dL (7-17); Calcium 9.6 mg/dL (8.4-10.2); Carbon Dioxide 32 mmol/L (22-30); Chloride 102 mmol/L (98-107); Estimated Glomerular Filt Rate > 60; Glucose 99 mg/dL (65-110); Potassium 4.2 mmol/L (3.4-5.0); Sodium 138 mmol/L (137-145)
== END 2024-03-06 06:51 | disposition home or self-care (01) ==
PROVIDERS: PCP Family Medicine; Visit Provider Family Medicine
DX: E03.9 Hypothyroidism, unspecified (principal); E78.5 Hyperlipidemia, unspecified; F98.8 Other specified behavioral and emotional disorders with onset usually occurring in childhood and adolescence; G47.33 Obstructive sleep apnea (adult) (pediatric); R53.82 Chronic fatigue, unspecified; E55.9 Vitamin D deficiency, unspecified
CPT/HCPCS: 36415; 80053; 84443; 85027

== ENCOUNTER 2024-03-12 10:53 | Emergency (ER) | payer OTHER, SELFPAY ==
--- NOTE | ~2024-03-12 | CT_ITS ---
EXAMINATION: CT brain wo con DATE: 03/12/2024 14:27 INDICATION: Headache. TECHNIQUE: Computed tomography (CT) of the head was performed without intravenous contrast. Sagittal and coronal reconstructions were performed. The mA was adjusted according to patient size. Iterative reconstruction technique was employed. The dose-length product was 529.67 mGy-cm. COMPARISON: None FINDINGS: Lenticular 12 x 10 x 4 mm high attenuation lesion along the left side of the falx at the level of the parietal lobe which given the thickness of both the extent of the lesion as well as the absence of h istory of trauma with strongly favor meningioma over a very small subdural hematoma. No other masses or mass effect. No acute infarction or abnormal extra axial fluid collection. There is mild scattered white matter hypoattenuation consistent with chronic small vessel ischemic disease. Ventricles are n ormal and symmetric. Changes of bilateral intraocular lens replacement. The orbits, paranasal sinuses and mastoid air cells are normal. IMPRESSION: 1. 12 x 10 x 4 mm high attenuation lesion along the left side of the falx and would favor strongly fa vor meningioma over subdural hematoma. 2. Mild scattered white matter hypoattenuation consistent with chronic small vessel ischemic disease. Reviewed, dictated and finalized at location A. ECTION CORRESPONDENT IMPRESSION: 1. 12 x 10 x 4 mm high attenuation lesion along the left side of the falx and w ould favor strongly favor meningioma over subdural hematoma. 2. Mild scattered white matter hypoattenuation consistent with chronic small ve ssel ischemic disease.
--- NOTE | ~2024-03-12 | MR_ITS ---
EXAMINATION: MR brain/brain stem wo/w con DATE: 03/12/2024 17:07 INDICATION: Parafalcine mass. TECHNIQUE: Magnetic resonance imaging (MRI) of the brain and brainstem was performed without and with 17 mL MultiHance intravenous contrast. COMPARISON: Head CT 03/12/2024 FINDINGS: There is an 11 x 4 mm enhancing parafalcine mass adjacent to the left parietal lobe, consis tent with a meningioma. There are scattered areas of nonspecific increased T2-weighted signal intensi ty in the cerebral white matter, which is within normal limits for the patient's age. There is no acu te ischemic infarct or intracranial hemorrhage. The ventricles are normal in size. There are likely c hanges of ocular lens replacement surgeries. The paranasal sinuses are clear. The mastoid air cells a re normal. IMPRESSION: 1. 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 Reviewed, dictated and finalized at location A. OGRAPHIC PLATE MAKER APPRENTICE
[2024-03-12 11:15] VITALS: BP 155/71; PULSE 58; RESP 17; TEMP 36.8; O2SAT 98
[2024-03-12 13:38] VITALS: BP 143/80; PULSE 60; RESP 16; O2SAT 98
[2024-03-12 15:00] VITALS: BP 140/93; PULSE 55; RESP 16; O2SAT 98
[2024-03-12 16:00] VITALS: BP 140/55; PULSE 55; RESP 16; O2SAT 100
[2024-03-12] MEDS: LORazepam INJ (*CRX) 2 MG/ML VIAL 1 MG IV PUSH (16:48)
[2024-03-12 17:45] VITALS: BP 127/74; PULSE 55; RESP 16; O2SAT 99
--- NOTE | 2024-03-12 17:49 | ED_ITS ---
HPI - Headache General Chief Complaint: Headache Stated Complaint: migraine since yesterday Time Seen by Provider: 03/12/24 13:27 History of Present Illness HPI Narrative: Patient has fell a throbbing pain to the right side of her scalp since yesterday, comes and goes. Tried her usual headache medications without much improvement. Pain with touching her scalp Related Data Home Medications ?Medication ?Instructions ?Recorded ?Confirmed ?Last Taken ?Type famotidine 40 mg tablet See Rx Instructions .Route 02/13/23 01/28/24 Unknown History .COMPLEX PRN Acid Reflux omega-3 acid ethyl esters 1 gram See Rx Instructions .Route .COMPLEX 02/13/23 01/28/24 Unknown History capsule Allergies Allergy/AdvReac Type Severity Reaction Status Date / Time No Known Allergies Allergy Verified 09/04/23 14:01 Review of Systems Review of Systems: All systems reviewed & are unremarkable except as noted in HPI and below PMFSH Past Medical History Medical History Diverticulosis Osteoarthritis Hypothyroidism ADD (attention deficit disorder) DARY (obstructive sleep apnea) Hyperlipidemia Palpitations Anxiety Screening for breast cancer Screening for breast cancer Cholecystectomy planned Surgical History Surgical History History of cholecystectomy History of appendectomy H/O: hysterectomy Family History Family History Mother Family history of malignant neoplasm Patient's mother is Sibling Family history of chronic obstructive pulmonary disease Patient's brother is Father Family history of Alzheimer's disease Patient's father is Other Family history of lung disease Social History Social History Social History: Social smoker in the past Years smoked: 3 Smoking status: Former smoker Tobacco type: cigarettes Second hand tobacco smoke exposure: Yes Alcohol intake: never Substance use: never Substance use type: does not use Lack of Transportation: No Lack of Food: Never True Current Housing: I Have Housing Concerned About Future Housing: No Difficulty Paying Gas/Electric Bills: No Difficulty Paying for Meds: No Education: High School Diploma/GED Difficulty w/ Childcare or Family Care: No Living arrangements: with family Spiritual care concerns: No Exam Narrative: EXAMINATION OF ORGAN SYSTEMS/BODY AREAS: Constitutional: Vital signs per nursing GENERAL:[No acute distress, non-toxic appearing.] HEAD: Normal with no signs of head trauma. Slight tenderness to palpation to the right scalp, no obvious blisters or lesions EYES: EOMI, conjunctiva normal ENT: Hearing grossly intact LUNGS: Nonlabored breathing. HEART: [Regular rate and rhythm] ABD: [Soft], [nontender to palpation] EXT: Normal range of motion SKIN: [No rashes or lesions.] NEURO: [Alert and oriented x 3. No gross focal sensory or strength deficits.] PSYCH: Normal affect Course Vital Signs Vital signs: Vital Signs Temperature 98.2 F 03/12/24 11:15 Pulse Rate 58 L 03/12/24 11:15 Respiratory Rate 17 03/12/24 11:15 Blood Pressure 155/71 H 03/12/24 11:15 Pulse Oximetry 98 03/12/24 11:15 Oxygen Delivery Room Air 03/12/24 11:15 Temperature 98.2 F 03/12/24 11:15 Pulse Rate 55 L 03/12/24 16:00 Respiratory Rate 16 03/12/24 16:00 Blood Pressure 140/55 L 03/12/24 16:00 Pulse Oximetry 100 03/12/24 16:00 Oxygen Delivery Room Air 03/12/24 11:15 MDM - Headache MDM Narrative Medical decision making narrative: Patient presenting with right scalp pain, she is well-appearing, denies any recent injuries or trauma. I do not see any lesions since I did consider possible shingles or early shingles. She very well appearing, no neurologic deficits. CT head shows possible meningioma but cannot rule out subdural, MRI obtained which is consistent with meningioma. Patient very well-appearing, I did discuss the findings with her, will have her follow-up with PCP. To my concern that this may be very early/developing shingles, I did give her script for Valtrex so that she can start if she starts noticing any new blisters or lesions to her scalp. Discharge Plan Discharge Clinical Impression: Meningioma, Scalp pain Patient Disposition: Home, Self-Care Condition: Stable Instructions: Meningioma (ED) Additional Instructions: Please follow-up with your primary care doctor, if your symptoms persist, if you start noticing a new rash on your head, come back to the emergency room. Patient Language: Vietnamese Prescriptions: New valacyclovir [Valtrex] 1 gram tablet 1,000 mg PO Q8H 7 Days Qty: 21 0RF No Action sodium chloride 0.9 % aerosol,spray 3 spray intranasal ONCE PRN (Reason: nasal congestion) Qty: 85 0RF albuterol sulfate 90 mcg/actuation HFA aerosol inhaler 2 inh inhalation Q4H Qty: 8.5 3RF Rx Instructions: w/ spacer alprazolam [Xanax] 0.25 mg tablet 0.25 mg PO DAILY PRN (Reason: anxiety) Qty: 30 0RF doxepin 25 mg capsule 25 mg PO QHS Qty: 30 0RF codeine-guaifenesin 10-100 mg/5 mL liquid 5 ml PO Q6H Qty: 120 0RF cetirizine [Zyrtec] 10 mg tablet 10 mg PO DAILY Qty: 30 6RF famotidine 40 mg tablet See Rx Instructions .ROUTE .COMPLEX PRN (Reason: Acid Reflux) Dose Instruction: Take 1 tablet by mouth once daily Rx Instructions: Take 1 tablet by mouth once daily PRN; omega-3 acid ethyl esters 1 gram capsule See Rx Instructions .ROUTE .COMPLEX Dose Instruction: Take 1 capsule by mouth once daily Rx Instructions: Take 1 capsule by mouth once daily PRN; calcium carbonate [Calcium 500] 500 mg calcium (1,250 mg) tablet 500 mg PO DAILY Qty: 90 1RF fluticasone propionate 50 mcg/actuation spray,suspension See Rx Instructions .ROUTE .COMPLEX Qty: 16 0RF Dose Instruction: Use 2 spray(s) in each nostril once daily Rx Instructions: Use 2 spray(s) in each nostril once daily montelukast 10 mg tablet See Rx Instructions .ROUTE .COMPLEX Qty: 90 0RF Dose Instruction: Take 1 tablet by mouth once daily Rx Instructions: Take 1 tablet by mouth once daily azithromycin [Zithromax Z-Evan] 250 mg tablet See Rx Instructions PO .COMPLEX Qty: 6 0RF Rx Instructions: For 250 mg dose pack: take 500 mg today (day 1), then 250 mg for 4 days (days 2-5) PO (DME) BreatheRite MDI Spacer Spacer See Rx Instructions .Route Qty: 1 0RF Rx Instructions: use w/ inhaler every 4 hours as needed for shortness of breath levothyroxine 75 mcg tablet 75 mcg PO DAILY Qty: 90 1RF nabumetone 500 mg tablet See Rx Instructions .ROUTE .COMPLEX Qty: 180 0RF Dose Instruction: Take 1 tablet by mouth twice daily Rx Instructions: Take 1 tablet by mouth twice daily Follow-up/Referrals: Cristian Almaguer MD [Primary Care Provider] - 2 Days
== END 2024-03-12 17:45 | disposition home or self-care (01) ==
PROVIDERS: Emergency Provider Emergency Medicine; PCP Family Medicine
DX: D32.0 Benign neoplasm of cerebral meninges (principal); E03.9 Hypothyroidism, unspecified; E78.5 Hyperlipidemia, unspecified; G47.33 Obstructive sleep apnea (adult) (pediatric); M19.90 Unspecified osteoarthritis, unspecified site; F98.8 Other specified behavioral and emotional disorders with onset usually occurring in childhood and adolescence; Z87.891 Personal history of nicotine dependence; Z90.49 Acquired absence of other specified parts of digestive tract; Z90.710 Acquired absence of both cervix and uterus; Z79.899 Other long term (current) drug therapy
CPT/HCPCS: 70450; 70553; 96374; 99284; A9577; J2060

== ENCOUNTER 2024-05-10 14:16 | Outpatient (CLI) | payer OTHER, SELFPAY ==
--- NOTE | ~2024-05-10 | XR_ITS ---
Clinical Indication: Fever PA and lateral views of the chest: Comparison: 01/28/2024 Findings: The lungs are clear, without evidence of focal consolidation or pleural effusion. Cardiome diastinal silhouette is within normal limits. Bones and soft tissues are unremarkable. Impression: Normal chest. Reviewed, dictated and finalized at [facility]. WORK MANAGER Impression: Normal chest.
--- OUTSIDE RECORDS SUMMARY | 2024-05-10 14:30 | XMS_ITS | Clinical Summary ---
Author Organization [facility] Address [address], [facility] [address] [place] [address] Phone Care Team Providers Care Charging Operator Name Role Phone Marcos Hastings MD Primary Care Provider [phone] Allergies No known active allergies Medications polyethylene glycol (MIRALAX) Powder Mix the entire bottle with 64 oz of a clear liquid. Use as directed by the office for colonoscopy prep. 255 g 0 6 Active metroNIDAZOLE (FLAGYL) 500 MG Tablet Take 1 Tab by mouth 3 times daily. 30 Tab 0 6 Active Selenium 200 MCG Capsule Take 1 Cap by mouth daily. Active Misc Natural Products (CURCUMAX PRO PO) Take 665 mg by mouth daily. Active GLUCOSAMINE-CHO NDROITIN POIndications:1 .5 g/200mg Take 1 Tab by mouth 2 times daily. Indications: 1.5 g/200mg Active Biotin 5000 MCG SL Tablet 1 Tab by Sublingual route daily. Active Magnesium Oxide 400 MG Capsule Take 1 Cap by mouth daily. Active Cholecalciferol (VITAMIN D3) 5000 UNITS Capsule Take 1 Cap by mouth daily. Active Multiple Vitamins-Minera ls (OCUVITE PO) Take 1 Cap by mouth daily. Active Cyanocobalamin (VITAMIN B-12) 5000 MCG SL Tablet 1 Tab by Sublingual route daily. Active niacin (SLO-NIACIN) 500 MG Tablet Controlled Release Take 500 mg by mouth daily. Active levothyroxine (SYNTHROID) 75 MCG Tablet Take 75 mcg by mouth daily. Active nabumetone (RELAFEN) 750 MG Tablet Take 750 mg by mouth 2 times daily. Active Family History Medical History Relation Name Comments Asthma Brother Alzheimer's Disease Father Cancer Mother Bone Marrow Colon Cancer Mother Relation Name Status Comments Brother Father Mother Social History Tobacco Use Types Packs/Day Years Used Date Smoking Tobacco: Never Smokeless Tobacco: Never Alcohol Use Standard Drinks/Week Comments Yes 0 (1 standard drink = 0.6 oz pure alcohol) 1 glass of wine every six month Comments Unknown Sex and Gender Information Value Date Recorded Sex Assigned at Not on file Legal Sex Female 9:19 AM CDT Gender Identity Not on file Sexual Orientation Not on file Plan of Treatment Health Maintenance Due Date Last Done Comments DEXA Bone Density 1950 Hepatitis C Virus (HCV) Screening 1950 TdaP Immunization 1950 Cologuard 08/19/1999 Immunochemical Fecal Occult Blood 08/19/1999 Mammogram 08/19/1999 Pneumococcal Immunization (5 0+ years) (1 of 1 - PCV) 08/19/1999 Zoster Immunization (1 of 2) 08/19/1999 Influenza Immunization (#1) 2023 SARS-COV-2 Immunization ( - season) 2023 Respiratory Syncytial Virus (RSV) Immunization (Adult) (1 - 1-dose 75+ series) 2024 Colonoscopy 03/18/2026 03/18/2016 Colorectal Cancer Screening 03/18/2026 03/18/2016 Hepatitis B Immunization Aged Out No longer eligible based on patient's age to complete this topic Meningococcal Immunization (ACWY) Aged Out No longer eligible based on patient's age to complete this topic Rotavirus Immunization Aged Out No lo nger eligible based on patient's age to complete this topic Procedures Procedure Name Priority Date/Time Associated Diagnosis Comments COLONOSCOPY Routine 03/18/2016 from Last 3 Months or Most Recently Relevant to Health Maintenance Results * COLONOSCOPY (03/18/2016) Macros Hastings MD PROCEDURE/MINOR SURGICAL ORDER KRISTINA Final Result from Last 3 Months or Most Recently Relevant to Health Maintenance Insurance MEDICARE C [facility] Care Teams Charging Operator Relationship Specialty Start Date End Date Marcos Hastings MD [address] [facility] [address] [place] [address] PCP - General Internal Medicine 03/25/16
--- OUTSIDE RECORDS SUMMARY | 2024-05-10 14:30 | XMS_ITS | Clinical Summary ---
Author Organization [facility] Address [facility] [place] [address] Care Team Providers Care Cabinet Abrasive Sandblaster Name Role Phone Unavailable Primary Care Provider Unavailabl e Social History Tobacco Use Types Packs/Day Years Used Date Smoking Tobacco: Never Assessed Comments Unknown Sex and Gender Information Value Date Recorded Sex Assigned at Not on file Legal Sex Female 7:36 PM CDT Gender Identity Not on file Sexual Orientation Not on file Last Filed Vital Signs Vital Sign Reading Time Taken Comments Blood Pressure 130/79 05/05/2014 9:40 AM REFERRAL AND INFORMATION AIDE Pulse 55 05/05/2014 9:40 AM REFERRAL AND INFORMATION AIDE Temperature - - Respiratory Rate - - Oxygen Saturation - - Inhaled Oxygen Concentration - - Weight 94.5 kg (208 lb 4 oz) 05/05/2014 9:40 AM REFERRAL AND INFORMATION AIDE Height 170.2 cm (5' 7 ) 05/05/2014 9:40 AM REFERRAL AND INFORMATION AIDE Body Mass Index 32.62 05/05/2014 9:40 AM REFERRAL AND INFORMATION AIDE Plan of Treatment Health Maintenance Due Date Last Done Comments Colorectal Cancer Screening Colonoscopy (10 Years) 1950 Hepatitis C 08/19/1967 DTaP, Tdap and Td Vaccines ( 1 - Tdap) 1968 Mammogram Screening 1989 Zoster Vaccines (1 of 2) 08/19/1999 Dexa Scan (General) 2014 Pneumococcal Vaccine: 65+ Ye ars (1 of 1 - PCV) 2014 COVID-19 Vaccine ( - 2023-2 5 season) 2023 Influenza Adult (#1) 2023 RSV Immunization or 60+ Years (1 - 1-dose 75+ series) 2024 Meningococcal B Vaccine Aged Out No l onger eligible based on patient's age to complete this topic Meningococcal Vaccine Aged Out No cj yusef eligible based on patient's age to complete this topic RSV Immunizations Under 20 Months Aged Out No longer eligible based on patient's age to complete this topic
[2024-05-10 15:38] LABS: Influenza A QL RT-PCR Positive (Negative); Influenza B QL RT-PCR Negative (Negative); RSV RNA, RT-PCR Negative (Negative); SARS-CoV-2 RNA PCR Negative (Negative)
== END 2024-05-10 14:17 | disposition home or self-care (01) ==
PROVIDERS: PCP Family Medicine; Visit Provider Nurse Practitioner Family
DX: R50.9 Fever, unspecified (principal); R05.9 Cough, unspecified; Z20.822 Contact with and (suspected) exposure to COVID-19
CPT/HCPCS: 71046; 87637

== ENCOUNTER 2024-06-10 09:20 | Outpatient (CLI) | payer OTHER, SELFPAY ==
--- NOTE | ~2024-06-10 | MR_ITS ---
EXAMINATION: MR brain/brain stem wo/w con DATE: 06/10/2024 10:28 INDICATION: Benign neoplasm of meninges. TECHNIQUE: Magnetic resonance imaging (MRI) of the brain and brainstem was performed without and with 20 mL ProHance intravenous contrast. COMPARISON: Brain MRI 03/12/2024, head CT 03/12/2024 FINDINGS: There are scattered areas of nonspecific increased T2-weighted signal intensity in the cere bral white matter, which is within normal limits for the patient's age. There is an 11 x 4 mm enhanci ng parafalcine mass adjacent to the left parietal lobe, consistent with a meningioma. There is no acu te ischemic infarct or intracranial hemorrhage. The ventricles are normal in size. There is mild muco dimitrios thickening in the paranasal sinuses. There are likely changes of ocular lens replacement surgerie s. The mastoid air cells are normal. IMPRESSION: 1. 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 Reviewed, dictated and finalized at location B.
--- OUTSIDE RECORDS SUMMARY | 2024-06-10 10:29 | XMS_ITS | Clinical Summary ---
Author Organization [facility] Address [address], [facility] [address] [place] [address] Phone Care Team Providers Care Design Specialist Name Role Phone Marcos Hastings MD Primary Care Provider [phone] Allergies No known active allergies Medications polyethylene [...] to Health Maintenance Results * COLONOSCOPY (03/18/2016) Marcos Hastings MD PROCEDURE/MINOR SURGICAL ORDER KRISTINA Final Result from Last 3 Months or Most Recently Relevant to Health Maintenance [facility] Care Teams Design Specialist Relationship Specialty Start Date End Date Marcos Hastings MD [address] [facility] [address] [place] [address] PCP - General Internal Medicine 03/25/16
--- OUTSIDE RECORDS SUMMARY | 2024-06-10 10:29 | XMS_ITS | Clinical Summary ---
Author Organization [facility] Address [facility] [place] [address] Care Team Providers Care Drawing Kiln Supervisor Name Role Phone Unavailable Primary Care Provider [...] Comments Blood Pressure 130/79 05/05/2014 9:40 AM RUSSIAN LANGUAGE PROFESSOR Pulse 55 05/05/2014 9:40 AM RUSSIAN LANGUAGE PROFESSOR Temperature - - Respiratory Rate - - Oxygen Saturation - - Inhaled Oxygen Concentration - - Weight 94.5 kg (208 lb 4 oz) 05/05/2014 9:40 AM RUSSIAN LANGUAGE PROFESSOR Height 170.2 cm (5' 7 ) 05/05/2014 9:40 AM RUSSIAN LANGUAGE PROFESSOR Body Mass Index 32.62 05/05/2014 9:40 AM RUSSIAN LANGUAGE PROFESSOR Plan of Treatment Health Maintenance Due Date [...]
== END 2024-06-10 09:21 | disposition home or self-care (01) ==
PROVIDERS: PCP Family Medicine; Visit Provider Neurological Surgery
DX: D32.9 Benign neoplasm of meninges, unspecified (principal)
CPT/HCPCS: 70553; A9579

== ENCOUNTER 2024-09-13 06:55 | Outpatient (CLI) | payer OTHER, SELFPAY ==
--- OUTSIDE RECORDS SUMMARY | 2024-09-13 06:58 | XMS_ITS | Clinical Summary ---
Author Organization [facility] Address [address], [facility] [address] [place] [address] Phone Care Team Providers Care Shift Stacker Name Role Phone Marcos Hastings MD Primary Care Provider [phone] Allergies No known active allergies Medications polyethylene [...] Colonoscopy 03/18/2026 03/18/2016 Colorectal Cancer Screening 03/18/2026 Hepatitis B Immunization Aged Out No longer [...] Relevant to Health Maintenance Insurance MEDICARE C [employer] Care Teams Shift Stacker Relationship Specialty Start Date End Date Mracos Hastings MD [address] [facility] [address] [place] [address] PCP - General Internal Medicine 03/25/16
[2024-09-13 07:41] LABS: Hematocrit 44.9 % (37.0-47.0); Hemoglobin 14.6 g/dL (12.0-15.0); Mean Corpuscular HGB Conc 32.5 g/dl (32-36); Mean Corpuscular Hemoglobin 31.5 pg (26-34); Mean Corpuscular Volume 96.8 fl (80-100); Platelet Count Result 214 k/mm3 (150-375); Red Blood Count 4.64 M/mm3 (4.2-5.4); Red Cell Distribution Width 13.3 % (11.5-14.5)
[2024-09-13 07:50] LABS: Alanine Aminotransferase 22 U/L (6-35); Albumin Level 4.2 g/dL (3.5-5.1); Alkaline Phosphatase 73 U/L (38-126); Anion Gap 5 mmol/L (4-12); Aspartate Amino Transferase 33 U/L (14-36); Bilirubin,Total 0.4 mg/dL (0.2-1.3); Blood Urea Nitrogen 14 mg/dL (7-17); Calcium 9.5 mg/dL (8.4-10.2); Carbon Dioxide 30 mmol/L (22-30); Chloride 103 mmol/L (98-107); Cholesterol 215 mg/dL (0-200); Estimated Glomerular Filt Rate > 60; Glucose 95 mg/dL (65-110); HDL Direct 63 mg/dL; Sodium 138 mmol/L (137-145); Total Protein 7.2 g/dL (6.3-8.2); Triglycerides 190 mg/dL (<150)
[2024-09-13 08:00] LABS: LDL Cholesterol Direct 91 mg/dL
[2024-09-13 08:10] LABS: Vitamin D 25 Hydroxy 59.4 ng/mL
== END 2024-09-13 06:56 | disposition home or self-care (01) ==
PROVIDERS: PCP Family Medicine; Visit Provider Family Medicine
DX: E03.9 Hypothyroidism, unspecified (principal); F41.9 Anxiety disorder, unspecified; F98.8 Other specified behavioral and emotional disorders with onset usually occurring in childhood and adolescence; E55.9 Vitamin D deficiency, unspecified
CPT/HCPCS: 36415; 80053; 80061; 82306; 84443; 85027

== ENCOUNTER 2024-11-02 15:13 | Outpatient (CLI) | payer OTHER, SELFPAY ==
--- NOTE | ~2024-11-02 | XR_ITS ---
AP and lateral views of the left hip Clinical history: Pain Findings: No acute fracture or dislocation is seen. Osseous alignment is anatomic. Left hip joint is intact. Soft tissues are unremarkable. Impression: No significant abnormality is seen. Reviewed, dictated and finalized at location M. Impression: No significant abnormality is seen.
--- NOTE | ~2024-11-02 | XR_ITS ---
AP and lateral views of the right hip Clinical history: Pain Findings: No acute fracture or dislocation is seen. Osseous alignment is anatomic. Right hip joint is intact. Soft tissues are unremarkable. Impression: No significant abnormality is seen. Reviewed, dictated and finalized at location M. Impression: No significant abnormality is seen.
--- NOTE | ~2024-11-02 | XR_ITS ---
AP/oblique views of the SI joints CLINICAL HISTORY: sacrococcygeal disorder FINDINGS: Hip joints and SI joints are intact without significant degenerative change. No evidence fo r reversible arthropathy. No sclerosis. No fracture or dislocation seen. Soft tissues are unremarkabl e. IMPRESSION: Unremarkable exam. Reviewed, dictated and finalized at location . IMPRESSION: Unremarkable exam.
--- NOTE | ~2024-11-02 | XR_ITS ---
Lumbosacral Spine: AP and lateral views Clinical History: Pain Findings: The normal lordotic curve is maintained. No fracture seen. There is minimal grade 1 anterol isthesis of L4 over L5. There is moderate degenerative disc narrowing at L4-L5. There is advanced fac et arthropathy at L4-L5 and L5-S1.. The sacroiliac joints are normally outlined. 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 Reviewed, dictated and finalized at location M. 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
--- OUTSIDE RECORDS SUMMARY | 2024-11-02 15:18 | XMS_ITS | Clinical Summary ---
Author Organization [facility] Address [facility] [place] [address] Care Team Providers Care Adult Nurse Practitioner Name Role Phone Unavailable Primary Care Provider [...] Comments Blood Pressure 130/79 05/05/2014 9:40 AM CNC SERVICE TECHNICIAN Pulse 55 05/05/2014 9:40 AM CNC SERVICE TECHNICIAN Temperature - - Respiratory Rate - - Oxygen Saturation - - Inhaled Oxygen Concentration - - Weight 94.5 kg (208 lb 4 oz) 05/05/2014 9:40 AM CNC SERVICE TECHNICIAN Height 170.2 cm (5' 7) 05/05/2014 9:40 AM CNC SERVICE TECHNICIAN Body Mass Index 32.62 05/05/2014 9:40 AM CNC SERVICE TECHNICIAN Plan of Treatment Health Maintenance Due Date Last Done Comments Colorectal Cancer Screening Colonoscopy (10 Years) 1950 Hepatitis C 08/19/1967 DTaP, Tdap and Td Vaccines ( 1 - Tdap) 1968 Pneumococcal Vaccine: 50+ Ye ars (1 of 1 - PCV) 08/19/1999 Zoster Vaccines (1 of 2) 08/19/1999 Dexa Scan (General) 2014 COVID-19 Vaccine ( - 2023-2 5 season) 2023 RSV Immunization or 60+ Years (1 [...]
--- OUTSIDE RECORDS SUMMARY | 2024-11-02 15:18 | XMS_ITS | Clinical Summary ---
Author Organization [facility] Address [address], [facility] [address] [place] [address] Phone Care Team Providers Care Nurse Esthetician Name Role Phone Marcos Hastings MD Primary Care Provider [phone] Allergies No known active allergies Medications polyethylene [...] Health Maintenance Due Date Last Done Comments Hepatitis C Virus (HCV) Screening 1950 TdaP Immunization 1950 Cologuard 1994 Immunochemical Fecal Occult Blood 1994 Pneumococcal Immunization (5 0+ years) (1 of 1 - PCV) 08/19/1999 Zoster Immunization (1 of 2) 08/19/1999 SARS-COV-2 Immunization (1 - 2023- season) 2023 Respiratory Syncytial Virus (RSV) Immunization (Adult) (1 - 1-dose 75+ series) 2024 Influenza Immunization (#1) 2024 Colonoscopy 03/18/2026 03/18/2016 Colorectal Cancer Screening 03/18/2026 Hepatitis B Immunization Aged Out No longer eligible based on patient's age to complete this topic Human Papillomavirus (HPV) Immunization Aged Out No longer eligible b ased on patient's age to complete this topic [...] Relevant to Health Maintenance Insurance MEDICARE C [facility] Care Teams Nurse Esthetician Relationship Specialty Start Date End Date Marcos Hastings MD [address] [place] [address] PCP - General Internal Medicine 03/25/16
== END 2024-11-02 15:14 | disposition home or self-care (01) ==
LOC: ANHIMG 15:15
PROVIDERS: PCP Family Medicine; Visit Provider Nurse Practitioner Family
DX: M25.551 Pain in right hip (principal); M25.552 Pain in left hip; M53.3 Sacrococcygeal disorders, not elsewhere classified; M51.369 Other intervertebral disc degeneration, lumbar region without mention of lumbar back pain or lower extremity pain
CPT/HCPCS: 72100; 72202; 73502

== ENCOUNTER 2025-02-28 12:42 | Outpatient (CLI) | payer OTHER, SELFPAY ==
--- NOTE | ~2025-02-28 | XR_ITS ---
EXAMINATION: XR chest 2V, 02/28/2025 13:04 BISQUE KILN DRAWER HISTORY: R09.89 - Other specified symptoms and signs involving the... COMPARISON: No comparisons available. Technique: 2 views obtained. Findings: The lungs are clear, no effusion. No pneumothorax. Heart is normal size. Mediastinal and hilar contours are within normal limits. Bony thorax no acute abnormality. Impression: No acute cardiopulmonary abnormality. Reviewed, dictated and finalized at location P. UE KILN DRAWER Impression: No acute cardiopulmonary abnormality.
--- NOTE | ~2025-02-28 | MM_ITS ---
EXAMINATION: MM screening avril BI w ilsa HISTORY: Screening. TECHNIQUE: Craniocaudal and mediolateral oblique 3-D tomosynthesis images were obtained and synthetic 2-D images were generated. CAD analysis was submitted and interpreted. COMPARISON: 2023, 2022, and 2021 BREAST PARENCHYMAL COMPOSITION: Not Dense: There are scattered areas of fibroglandular FINDINGS: No suspicious masses are seen. There are no suspicious calcifications. No unexplained architectural distortion is seen. There are no skin or nipple abnormalities identified. There is no adenopathy seen on the images submitted. IMPRESSION: No mammographic evidence to suggest malignancy is seen. The patient may return to screening mammography as per ACR guidelines. BI-RADS 1 - Negative. Reviewed, dictated and finalized at location B. R SALES REPRESENTATIVE AND ASSESSOR
== END 2025-02-28 12:43 | disposition home or self-care (01) ==
LOC: MICIMG 12:46
PROVIDERS: PCP Family Medicine; Visit Provider Family Medicine
DX: Z12.31 Encounter for screening mammogram for malignant neoplasm of breast (principal); R09.89 Other specified symptoms and signs involving the circulatory and respiratory systems
CPT/HCPCS: 71046; 77063; 77067

== ENCOUNTER 2025-03-10 13:59 | Outpatient (CLI) | payer OTHER, SELFPAY ==
--- NOTE | ~2025-03-10 | MR_ITS ---
EXAMINATION: MRI brain with and without contrast: DATE: 03/10/2025 INDICATION: 74-year-old female for follow-up of 11 mm size left parafalcine meningioma. No prior history of malignancy or cranial surgery. TECHNIQUE: Axial, coronal and sagittal images including postcontrast study after injection of MultiHance IV. COMPARISON: MRI dated 06/10/2024. FINDINGS: No acute infarct. No significant chronic ischemic changes on the FLAIR sequence. No evidence of intracranial bleed or extra-axial collections. Well-circumscribed enhancing extra-axial nodule is noted in the parasagittal location on the left side the cervical area. Lesion measures 9 x 6 x 10 mm in size and stable from prior studies. This is likely a small meningioma. No midline shift. No space-occupying lesions of the posterior fossa. IMPRESSION: 1. Stable left parasagittal meningioma in the occipital region, 9 x 6 x 10 mm in size. Reviewed, dictated and finalized at location T. TATION MANAGER IMPRESSION: 1. Stable left parasagittal meningioma in the occipital region, 9 x 6 x 10 mm i n size.
--- OUTSIDE RECORDS SUMMARY | 2025-03-10 16:49 | XMS_ITS | Clinical Summary ---
Author Organization [facility] Address [address], [facility] [address] [place] [address] Phone Care Team Providers Care Unit Receptionist Name Role Phone Marcos Hastings MD Primary Care Provider [phone] Allergies No known active allergies Medications polyethylene [...] 08/19/1999 Zoster Immunization (1 of 2) 08/19/1999 Respiratory Syncytial Virus (RSV) Immunization (Adult) (1 - 1-dose 75+ series) 2024 Influenza Immunization (#1) 2024 SARS-COV-2 Immunization ( - season) 2024 Colonoscopy 03/18/2026 03/18/2016 Colorectal Cancer Screening [...] Relevant to Health Maintenance Insurance MEDICARE C [facility] Care Teams Unit Receptionist Relationship Specialty Start Date End Date Marcos Hastings MD [address] [place] [address] PCP - General Internal Medicine 03/25/16
--- OUTSIDE RECORDS SUMMARY | 2025-03-10 16:49 | XMS_ITS | Clinical Summary ---
Author Organization [facility] Address [facility] [place] [address] Care Team Providers Care Pizza Baker Name Role Phone Unavailable Primary Care Provider [...] Comments Blood Pressure 130/79 05/05/2014 9:40 AM ELECTRO MECHANICAL ENGINEER Pulse 55 05/05/2014 9:40 AM ELECTRO MECHANICAL ENGINEER Temperature - - Respiratory Rate - - Oxygen Saturation - - Inhaled Oxygen Concentration - - Weight 94.5 kg (208 lb 4 oz) 05/05/2014 9:40 AM ELECTRO MECHANICAL ENGINEER Height 170.2 cm (5' 7) 05/05/2014 9:40 AM ELECTRO MECHANICAL ENGINEER Body Mass Index 32.62 05/05/2014 9:40 AM ELECTRO MECHANICAL ENGINEER Plan of Treatment Health Maintenance Due Date Last Done Comments Colorectal Cancer Screening Colonoscopy (10 Years) 1950 Hepatitis C 08/19/1967 DTaP, Tdap and Td Vaccines ( 1 - Tdap) 1968 Pneumococcal Vaccine: 50+ Ye ars (1 of 1 - PCV) 08/19/1999 Zoster Vaccines (1 of 2) 08/19/1999 Dexa Scan (General) 2014 RSV Immunization or 60+ Years (1 - 1-dose 75+ series) 2024 COVID-19 Vaccine ( - 2024-2 6 season) 2024 Influenza Adult (#1) 2024 Hepatitis A Vaccines Aged Out No long er eligible based on patient's age to complete this topic Meningococcal B Vaccine Aged Out No l onger eligible based on patient's age to complete this topic Meningococcal Vaccine Aged Out No cj yusef eligible based on patient's age to complete this topic RSV Immunizations Under 20 Months Aged Out No longer eligible based on patient's age to complete this topic
== END 2025-03-10 14:00 | disposition home or self-care (01) ==
PROVIDERS: PCP Family Medicine; Visit Provider Neurological Surgery
DX: D32.9 Benign neoplasm of meninges, unspecified (principal)
CPT/HCPCS: 70553; A9577